=== PATIENT | male | born 1970 | race Caucasian/White ===

== ENCOUNTER 2018-11-08 22:51 | Inpatient (IN) ==
[2018-11-08] MEDS ORDERED: LACTATED RINGERS 1,000 ML IV ONE (23:38)
[2018-11-08] MEDS ORDERED: PROMETHAZINE 25 MG/ML VIAL IV ONE (23:38)
--- NOTE | 2018-11-08 23:48 | Emergency Department Note ---
Nausea/Vomiting/Diarrhea HPI - General Chief complaint: Nausea/Vomiting/Diarrhea Stated complaint: nausea,vomiting,diarrhea Time Seen by Provider: 11/08/18 23:37 Source: patient Mode of arrival: ambulatory Limitations: no limitations - History of Present Illness HPI Narrative: This gentleman states that he had hip surgery done 2 months ago. He's had mu ltiple rounds of antibiotics for an infection on his lips as well as from the hip surgery. He's been having issues with constipation and diarrhea. Went in to [facility] on Sunday and was given mag citrate. He's had diarrhea ever since then. He is also vomiting 3 times a day. Just not feeling well rapid heart rate. Denies abdominal pain MD complaint: nausea, vomiting, diarrhea - Related Data Home Medications Medication Instructions Recorded Confirmed amlodipine 5 mg tablet 5 mg PO QDAY 05/29/17 05/29/17 gabapentin 300 mg capsule See Rx Instructions PO TID 05/29/17 05/29/17 Ciprofloxacin [Cipro] 500 mg PO BID 08/23/18 08/23/18 FLUoxetine HCL [PROzac] 20 mg PO DAILY 08/23/18 08/23/18 Hydrochlorothiazide [Oretic] 12.5 mg PO DAILY 08/23/18 08/23/18 Losartan [Cozaar] 100 mg PO DAILY 08/23/18 08/23/18 Allergies Allergy/AdvReac Type Severity Reaction Status Date / Time sulfamethoxazole Allergy Mild Rash Verified 08/23/18 07:36 [From Sulfamethoprim] trimethoprim Allergy Mild Rash Verified 08/23/18 07:36 [From Sulfamethoprim] Avocado Allergy Unknown Swells up, Verified 08/23/18 07:36 throat closes, hives coconut Allergy Unknown Swells up, Verified 08/23/18 07:36 throat closes, hives Review of Systems All systems ED: reviewed and negative except as stated. Constitutional: Denies: fever, chills ENT ED: Reports: dysphagia, other (history of recently diagnosed mouth cancer). Denies: throat pain Cardiovascular: Denies: chest pain Respiratory: Denies: shortness of breath Gastrointestinal: Reports: nausea, vomiting, diarrhea Genitourinary: Reports: dysuria, frequency, urgency. Denies: hematuria Musculoskeletal: Denies: back pain Past Medical History - Past Medical History Source: nursing notes reviewed Medical history: Reports: DM Surgical history ED: Reports: orthopedic, other Family history: Reports: non-contributory - Social History smoking status: Former smoker Alcohol use: Reports: None Physical Exam Limitations: no limitations General appearance: alert, in no apparent distress Head: atraumatic, normocephalic, normal inspection Eye: Present: normal appearance, PERRL, EOMI. Absent: scleral icterus ENT: normal oropharynx, mucous membranes dry, other (2 small lip lesions, less than 1 mm in size. Second lesion to the right lateral side of the lip appears to be more of a pustule) Neck: Present: normal inspection, full ROM Chest: Present: normal inspection, symmetric chest wall rise Respiratory: Present: normal lung sounds bilaterally. Absent: respiratory distress, rales/crackles Cardiovascular: Present: regular rate, normal rhythm Abdominal: Present: soft, hypoactive bowel sounds. Absent: distention, tenderness, guarding, rebound : Present: normal inspection, normal testicular lie Extremities: Present: normal inspection, full ROM. Absent: pedal edema Back: Present: normal inspection. Absent: CVA tenderness (R), CVA tenderness (L) Neurological: Present: alert, oriented X3, CN II-XII intact Psychiatric: Present: normal affect Skin: Present: warm, dry, normal color Course - Reevaluation(s) Reevaluation #1: Patient started on IV fluids up. He is markedly dehydrated with a serum osmolality of 333. Serum glucose also elevated 1012. He was started on insulin drip. We also gave him IV fluids. Zofran as needed for nausea and he was no longer vomiting in the emergency department. Did hold down a couple of cups of water. Further diarrhea in the department but stool cultures were ordered. Patient did have a history of significant antibiotic use in the last 2 months so there is some concern for C differential diarrhea as well. White count not significant is elevated abdominal exam benign. Final diagnosis is hyperglycemia with dehydration. Discussed with Dr. Romero Vital Signs Temperature 97.0 F 11/08/18 22:52 Pulse Rate 127 H 11/08/18 22:52 Respiratory Rate 18 11/08/18 22:52 Blood Pressure 142/94 11/08/18 22:52 Pulse Oximetry (%) 96 11/08/18 22:52 Temperature 97.0 F 11/08/18 22:52 Pulse Rate 90 07/20/19 02:01 Respiratory Rate 16 11/09/18 02:01 Blood Pressure 151/105 11/09/18 02:01 Pulse Oximetry (%) 97 11/09/18 02:01 Nausea/Vomiting/Diarrhea - Lab Data Lab results reviewed: Yes I reviewed the patient's lab results. Result diagrams: 11/08/18 23:48 11/08/18 23:48 Lab Results 11/08/18 11/08/18 11/08/18 Range/Units 23:48 23:48 23:48 WBC 11.1 H (4.5-11.0) K/mcL RBC 5.24 (4.50-5.90) M/mcL Hgb 16.2 (13.5-16.5) g/dL Hct 47.7 (41.0-55.0) % MCV 90.9 (80.0-100.0) fL MCH 31.0 (26.0-34.0) pg MCHC 34.1 (31.0-36.0) g/dL RDW 12.1 (11.5-14.5) % Plt Count 204 (140-440) K/mcL MPV 10.7 H (7.4-10.4) fL Gran % 72.0 (38.0-78.0) % Lymph % (Auto) 18.2 (15.5-49.0) % [place] % (Auto) 8.5 (1.0-12.0) % Eos % (Auto) 0.9 (0.0-7.0) % Baso % (Auto) 0.4 (0.0-2.0) % Gran # 8.0 (1.8-8.0) K/mcL Lymph # (Auto) 2.0 (1.5-4.8) K/mcL [place] # (Auto) 0.9 (0.1-0.9) K/mcL Eos # (Auto) 0.1 (0.0-0.7) K/mcL Baso # (Auto) 0 (0.0-0.3) K/mcL ABG Methemoglobin (0.4-1.5) % VBG pH (7.32-7.42) U VBG pCO2 (41.0-51.0) mmHg VBG pO2 (25-40) mmHg VBG HCO3 (24.0-28.0) mmol/L VBG Total CO2 (25.0-29.0) mmol/L VBG O2 Saturation (40.0-70.0) % VBG Base Excess (-2.0-2.0) Carboxyhemoglobin (0.0-1.5) % THgb Total Hemoglobin (13.5-16.5) gm/dL O2 Delivery Level Sodium 123 L (133-145) mmol/L Potassium 4.6 (3.3-5.1) mmol/L Chloride 84 L (96-108) mmol/L Carbon Dioxide 21 L (22-30) mmol/L Anion Gap 18.0 H (8-16) BUN 18 (6-20) mg/dl Creatinine 1.1 (0.7-1.2) mg/dl GFR Calculation 78 Glucose 1012 H* (70-105) mg/dL Osmolality 333 H (280-300) mOSM/kg Calcium 9.7 (8.6-10.4) mg/dl Total Bilirubin 1.6 H (0.0-1.0) mg/dL AST 22 (0-37) U/l ALT 62 H (0-40) U/l Alkaline Phosphatase 206 H (39-117) U/L C-Reactive Protein 1.3 H (0.0-0.8) mg/dl Total Protein 7.2 (5.9-8.4) gm/dL Albumin 4.4 (3.2-5.2) gm/dL Globulin 2.8 (2.2-3.7) gm/dL Albumin/Globulin Ratio 1.6 (1.0-2.3) Urine Color Urine Appearance Urine pH (5.0-9.0) Ur Specific [place] (1.000-1.035) Urine Protein (NEG) mg/dL Urine Glucose (UA) (NEG) mg/dL Urine Ketones (NEG) mg/dL Urine Occult Blood (<0.03) mg/dL Urine Nitrate (NEG) Urine Bilirubin (NEG) mg/dL Urine Urobilinogen (NEG) mg/dL Ur Leukocyte Esterase (NEG) /uL Urine RBC (0-1) /hpf Urine WBC (0-4) /hpf Ur Squamous Epith Cells (0-4) /hpf Urine Bacteria (0) /hpf Urine Mucus (0) /hpf Ur Culture Indicated? 11/08/18 11/09/18 Range/Units 23:52 01:19 WBC (4.5-11.0) K/mcL RBC (4.50-5.90) M/mcL Hgb (13.5-16.5) g/dL Hct (41.0-55.0) % MCV (80.0-100.0) fL MCH (26.0-34.0) pg MCHC (31.0-36.0) g/dL RDW (11.5-14.5) % Plt Count (140-440) K/mcL MPV (7.4-10.4) fL Gran % (38.0-78.0) % Lymph % (Auto) (15.5-49.0) % [place] % (Auto) (1.0-12.0) % Eos % (Auto) (0.0-7.0) % Baso % (Auto) (0.0-2.0) % Gran # (1.8-8.0) K/mcL Lymph # (Auto) (1.5-4.8) K/mcL [place] # (Auto) (0.1-0.9) K/mcL Eos # (Auto) (0.0-0.7) K/mcL Baso # (Auto) (0.0-0.3) K/mcL ABG Methemoglobin 0 L (0.4-1.5) % VBG pH 7.44 H (7.32-7.42) U VBG pCO2 34.5 L (41.0-51.0) mmHg VBG pO2 85 H (25-40) mmHg VBG HCO3 22.7 L (24.0-28.0) mmol/L VBG Total CO2 23.8 L (25.0-29.0) mmol/L VBG O2 Saturation 92.7 H (40.0-70.0) % VBG Base Excess -0.8 (-2.0-2.0) Carboxyhemoglobin 2.9 H (0.0-1.5) % THgb Total Hemoglobin 15.0 (13.5-16.5) gm/dL O2 Delivery Level Not Reportable Sodium (133-145) mmol/L Potassium (3.3-5.1) mmol/L Chloride (96-108) mmol/L Carbon Dioxide (22-30) mmol/L Anion Gap (8-16) BUN (6-20) mg/dl Creatinine (0.7-1.2) mg/dl GFR Calculation Glucose (70-105) mg/dL Osmolality (280-300) mOSM/kg Calcium (8.6-10.4) mg/dl Total Bilirubin (0.0-1.0) mg/dL AST (0-37) U/l ALT (0-40) U/l Alkaline Phosphatase (39-117) U/L C-Reactive Protein (0.0-0.8) mg/dl Total Protein (5.9-8.4) gm/dL Albumin (3.2-5.2) gm/dL Globulin (2.2-3.7) gm/dL Albumin/Globulin Ratio (1.0-2.3) Urine Color Colorless Urine Appearance Clear Urine pH 5.0 (5.0-9.0) Ur Specific [place] 1.028 (1.000-1.035) Urine Protein Neg (NEG) mg/dL Urine Glucose (UA) >=500 A (NEG) mg/dL Urine Ketones 5/tr A (NEG) mg/dL Urine Occult Blood Neg (<0.03) mg/dL Urine Nitrate Neg (NEG) Urine Bilirubin Neg (NEG) mg/dL Urine Urobilinogen Neg (NEG) mg/dL Ur Leukocyte Esterase Neg (NEG) /uL Urine RBC < 1 (0-1) /hpf Urine WBC 0 (0-4) /hpf Ur Squamous Epith Cells 0 (0-4) /hpf Urine Bacteria 0 (0) /hpf Urine Mucus Few (0) /hpf Ur Culture Indicated? No Disposition Pt seen by [facility]/PA only: No Clinical Impression: Hyperglycemia due to type 2 diabetes mellitus Disposition: Xfer As Inpt ([facility]) Referrals: Cristian,Armen, [employer] [Primary Care Provider] -
[2018-11-08] MEDS ORDERED: 0.9 % SODIUM CHLORIDE 1,000 ML BAG IV STA (23:51)
[2018-11-09 00:29] LABS: Basophils # (Auto) 0 K/mcL (0.0-0.3); Basophils % (Auto) 0.4 % (0.0-2.0); Eosinophils # (Auto) 0.1 K/mcL (0.0-0.7); Eosinophils % (Auto) 0.9 % (0.0-7.0); Hematocrit 47.7 % (41.0-55.0); Hemoglobin 16.2 g/dL (13.5-16.5); Lymphocytes % (Auto) 18.2 % (15.5-49.0); Mean Cell Volume 90.9 fL (80.0-100.0); Mean Corpuscular HGB Conc 34.1 g/dL (31.0-36.0); Mean Platelet Volume 10.7 fL (7.4-10.4); Monocytes # (Auto) 0.9 K/mcL (0.1-0.9); Monocytes % (Auto) 8.5 % (1.0-12.0); Platelet Count 204 K/mcL (140-440); RBC 5.24 M/mcL (4.50-5.90); Red Cell Distribution Width 12.1 % (11.5-14.5); WBC 11.1 K/mcL (4.5-11.0)
[2018-11-09 00:31] LABS: Appearance,Urine CLEAR; Bacteria,Urine 0 /hpf (0); Bilirubin,Urine NEG (NEG); Color,Urine COLORLESS; Culture Indicated,Urine NO; Glucose,Urine (UA) >=500 mg/dL (NEG); Ketones,Urine 5/TR mg/dL (NEG); Leukocyte Esterase,Urine NEG /uL (NEG); Mucus,Urine FEW /hpf (0); Nitrate,Urine NEG (NEG); Protein,Urine NEG (NEG); Specific Gravity,Urine 1.028 (1.000-1.035); Urine Blood NEG mg/dL (<0.03); Urine RBC < 1 /hpf (0-1); Urine Squamous Epithelial Cell 0 /hpf (0-4); Urine WBC 0 /hpf (0-4); Urobilinogen,Urine NEG (NEG)
[2018-11-09] MEDS ORDERED: ONDANSETRON 4 MG/2 ML VIAL IV ONE (00:46)
[2018-11-09] MEDS ORDERED: 0.9 % SODIUM CHLORIDE 1,000 ML IV ONE ×2 (00:57→02:14)
[2018-11-09 00:59] LABS: ALT/SGPT 62 U/l (0-40); AST/SGOT 22 U/l (0-37); Albumin 4.4 gm/dL (3.2-5.2); Albumin/Globulin Ratio 1.6 (1.0-2.3); Alkaline Phosphatase 206 U/L (39-117); Bilirubin,Total 1.6 mg/dL (0.0-1.0); Blood Urea Nitrogen 18 mg/dl (6-20); C-Reactive Protein 1.3 mg/dl (0.0-0.8); Calcium 9.7 mg/dl (8.6-10.4); Carbon Dioxide 21 mmol/L (22-30); Chloride 84 mmol/L (96-108); Globulin 2.8 gm/dL (2.2-3.7); Glomerular Filtration Rate 78; Glucose 1012 mg/dL (70-105)
[2018-11-09] MEDS ORDERED: INSULIN GLARGINE, HUMAN 1 UNIT/0.01 ML SQ ONE ×3 (01:05→22:07)
[2018-11-09] MEDS ORDERED: INSULIN REGULAR, HUMAN 50 UNIT in 0.9 % SODIUM CHLORIDE 99.5 ML IV ONE ×2 (01:09→01:25)
[2018-11-09] MEDS ORDERED: INSULIN REGULAR, HUMAN 50 UNIT in 0.9 % SODIUM CHLORIDE 99.5 ML IV SCH ×2 (01:15→03:09)
[2018-11-09 01:37] LABS: ABG Methemoglobin 0 % (0.4-1.5); VBG Base Excess -0.8 (-2.0-2.0); VBG HCO3 22.7 mmol/L (24.0-28.0); VBG Oxygen Saturation 92.7 % (40.0-70.0); VBG PCO2 34.5 mmHg (41.0-51.0); VBG PH 7.44 U (7.32-7.42); VBG PO2 85 mmHg (25-40); VBG Total CO2 23.8 mmol/L (25.0-29.0)
[2018-11-09] MEDS ORDERED: ACETAMINOPHEN 325 MG TABLET PO ONE ×3 (01:43→22:20)
[2018-11-09] MEDS ORDERED: ACETAMINOPHEN 325 MG TABLET PO PRN (03:09)
[2018-11-09] MEDS ORDERED: ONDANSETRON 4 MG/2 ML VIAL IV PRN ×2 (03:09→21:39)
[2018-11-09] MEDS ORDERED: NALOXONE HCL 0.4 MG/ML VIAL IV PRN ×2 (03:09→21:39)
[2018-11-09] MEDS: LACTATED RINGERS 1,000 ML IV SCH ×3 (03:19→22:00)
[2018-11-09] MEDS ORDERED: ONDANSETRON 4 MG/2 ML VIAL ONE (03:21)
[2018-11-09] MEDS ORDERED: KETOROLAC 15 MG/ML VIAL IV ONE (04:06)
[2018-11-09] MEDS ORDERED: KETOROLAC 15 MG/ML VIAL ONE (04:17)
[2018-11-09] MEDS ORDERED: HYDROmorphone 2 MG/ML VIAL IV ONE (04:40)
[2018-11-09] MEDS ORDERED: HYDROmorphone 2 MG/ML VIAL ONE (04:43)
[2018-11-09] MEDS: 0.9 % SODIUM CHLORIDE 10 ML SYRINGE IV SCH ×4 (05:38→22:00)
[2018-11-09 05:53] LABS: Beta Hydroxybutyrate 1.31 mmol/L (< 0.27)
[2018-11-09] MEDS ORDERED: FLUoxetine HCL 20 MG CAPSULE PO SCH (09:00)
[2018-11-09] MEDS ORDERED: FAMOTIDINE/PF 20 MG/2 ML VIAL IV SCH (09:00)
[2018-11-09] MEDS: HEPARIN 5,000 UNIT/ML VIAL SQ SCH ×2 (10:02→20:57)
--- NOTE | 2018-11-09 10:37 | Internal Med History&Physical ---
Medical - H&P: HPI Patient information: Note initiated : 11/09/18 at 10:32 am Service Date, if different from initiated Date: [] Patient: Aaron Calle 48 y/o M admitted on 11/09/18 for nausea,vomiting,diarrhea. Chief Complaint: [] History of present illness: Mr. Calle is a 48 year old M history of obesity, presents to the emergency room today for evaluation of nausea vomiting diarrhea. The patient had hip surgery done recently, post surgery there was a concern for bursitis and the patient was on antibiotics and some medications from orthopedics. The patient developed nausea and vomiting approximately 3 days ago, his symptoms have progressively gotten worse since then. He has been drinking a lot of water but still felt thirsty, was dizzy. He was not able to keep much food down. He was seen in urgent care center at [facility], x-ray abdomen was done which is interpreted as negative but there was concern for some constipation and the patient was given magnesium citrate. After demonstration of magnesium citrate patient developed diarrhea, the patient continued to have diarrhea nausea and vomiting now. Last episode of diarrhea was yesterday morning. He continued to have nausea and vomiting late last night at which time they decided to bring him to the emergency room. He denies any cough shortness of breath or chest pain, he admits to having visual black spots and headaches does have a history of migraines, he has nausea vomiting and diarrhea, he has abdominal pain associated with same, he has some pain at the left hip at the site of surgery but does not feel that it is any worse than before. He admits to having subjective sensation of chills but no documented fever. The patient denies any other acute complaint or concern. On presenting to the emergency room patient was hemodynamically stable saturating well on room air. His labs showed he had a glucose level of more than 1000, no obvious evidence of infection according to the ED provider however basic work-up was not completed, UA is negative for infection. Patient is pending a chest x-ray CT abdomen and pelvis which should cover the hip region also. Patient was admitted to the ICU for management of DKA and hyperosmolar state. Patient has an A1c of 6.5 according to his which was diagnosed a few months ago his primary care provider was going to work this up and start the patient on medications. All systems: reviewed and no additional remarkable complaints except as stated (as per HPI rest negative) Medical - H&P: PMH Medical history: Medical History (Last Updated 05/29/17 @ 16:03 by Ana Levy) History of tobacco use (Chronic) Work related injury (Chronic ~02/2017) Left testicular pain (Chronic ~02/2017) Left groin pain (Chronic ~02/2017) Carpal tunnel syndrome, bilateral (Chronic ~2012) Migraines (Chronic ~1987) Hyperlipidemia (Chronic) Hypertension, essential (Chronic ~2007) Gout (Chronic ~2009) Surgical history: Past Surgical History (Last Updated 05/29/17 @ 15:59 by Ana Levy) H/O colonoscopy (Chronic) H/O shoulder surgery (Chronic) History of herniorrhaphy (Chronic) Hx of appendectomy (Chronic) Pertinent family history: Family History (Last Updated 05/29/17 @ 16:01 by Ana Levy) Mother Lung cancer Seizures Father Heart attack Family/Other Migraines Medical - H&P: Meds Home Medications Medication Instructions Recorded Confirmed Type amlodipine 5 mg tablet 5 mg PO QDAY 05/29/17 11/09/18 History FLUoxetine HCL [PROzac] 20 mg PO DAILY 08/23/18 11/09/18 History Hydrochlorothiazide [Oretic] 12.5 mg PO DAILY 08/23/18 11/09/18 History Losartan [Cozaar] 100 mg PO DAILY 08/23/18 11/09/18 History Allergies Allergy/AdvReac Type Severity Reaction Status Date / Time Avocado Allergy Severe Swells up, Verified 11/09/18 08:13 throat closes, hives coconut Allergy Severe Swells up, Verified 11/09/18 08:13 throat closes, hives sulfamethoxazole Allergy Mild Rash Verified 08/23/18 07:36 [From Sulfamethoprim] trimethoprim Allergy Mild Rash Verified 08/23/18 07:36 [From Sulfamethoprim] Medical - H&P: Exam - Constitutional Vitals: Temp Pulse Resp BP Pulse Ox 98.3 F 86 14 121/87 96 11/09/18 08:01 11/09/18 09:05 11/09/18 09:05 11/09/18 09:01 11/09/18 09:05 Exam: GENERAL: The patient is a well-developed, well-nourished in no apparent distress. Is alert and oriented x3. Obese individual VITAL SIGNS: Reviewed and as noted elsewhere. HEENT: Head is normocephalic and atraumatic. Extraocular muscles are intact. Pupils are equal, round, and reactive to light. Nares appeared normal. Mouth appears any without lesions. Mucous membranes are moist. NECK: Normal to inspection, Supple, No lymphadenopathy or thyromegaly. LUNGS: Air entry equal on both sides, no wheezing, crackles or rhonchi noted. No accessory muscles of respiration HEART: Regular rate and rhythm normal, S1 and S2 heard, no Gallop, S3 or Rub Noted, No Gross murmur heard. ABDOMEN: Soft, nontender, and nondistended. Positive bowel sounds. No hepatosplenomegaly was noted. EXTREMITIES: No cyanosis, clubbing, rash, lesions or edema. Left hip site has well-healing wounds from surgery, no obvious fluctuation or erythema noted NEUROLOGIC: Cranial nerves II through XII are grossly intact. Motor and Sensory System Grossly Intact PSYCHIATRIC: Normal affect, Normal Mood. Appropriate Behavior. SKIN: No ulceration or wounds noted, No jaundice, No rash noted. Medical - H&P: Reslt - Labs CBC & Chem 7: 11/08/18 23:48 11/08/18 23:48 Labs: Short CBC 11/08/18 Range/Units 23:48 WBC 11.1 H (4.5-11.0) K/mcL Hgb 16.2 (13.5-16.5) g/dL Hct 47.7 (41.0-55.0) % Plt Count 204 (140-440) K/mcL BMP 11/08/18 23:48 Sodium 123 L Potassium 4.6 Chloride 84 L Carbon Dioxide 21 L BUN 18 Creatinine 1.1 Glucose 1012 H* Calcium 9.7 Liver Function 11/08/18 Range/Units 23:48 Total Bilirubin 1.6 H (0.0-1.0) mg/dL AST 22 (0-37) U/l ALT 62 H (0-40) U/l Alkaline Phosphatase 206 H (39-117) U/L Albumin 4.4 (3.2-5.2) gm/dL Urine 11/08/18 Range/Units 23:52 Urine Color Colorless Urine Appearance Clear Urine pH 5.0 (5.0-9.0) Ur Specific [place] 1.028 (1.000-1.035) Urine Protein Neg (NEG) mg/dL Urine Glucose (UA) >=500 A (NEG) mg/dL - ABG Interpretation ABG results: 11/09/18 01:19 ABG Methemoglobin 0 L VBG pH 7.44 H VBG pCO2 34.5 L VBG pO2 85 H VBG HCO3 22.7 L VBG Total CO2 23.8 L VBG O2 Saturation 92.7 H VBG Base Excess -0.8 Medical - H&P: A/P - Narrative A/P Narrative: A/P DKA/Hyperosmolar state -Likely etiology of patients symptoms, of nausea/vomiting, and weakness -IV fluids, Insulin GGT, look for e/o infection -likely precipitated by recent surgery, -not sure if steroids were used for bursitis -Beta hydroxybtyrate is midly elevated -get Chest X ray, abdomen and pelvis CT Pseudohyponatremia -no need for slow correction. Headache -severe, with floaters -get Head CT -symptomatic management Nausea/Vomiting/Diarrhea -Nausea and vomiting likely from DKA hyperosmolar state -Diarrhea secondary to use of mag citrate has resolved now will watch Morbid Obesity, BMI 38 -outpatient management HTN -Resume home bp meds DVT hep sq Full code NPO for now. Medical - H&P: Qual - Stroke Symptom Onset Unknown: No - VTE Deep Vein Thrombosis/Pulmonary Embolism Present on Admission: No Social History - Social History marital status: single - Tobacco smoking status: Former smoker - Alcohol alcohol intake frequency: a few times a month - Substance use substance use type: does not use
[2018-11-09] MEDS ORDERED: HYDROCHLOROTHIAZIDE 12.5 MG CAPSULE PO SCH (10:44)
[2018-11-09] MEDS ORDERED: amLODIPine 5 MG TABLET PO SCH (10:44)
[2018-11-09] MEDS ORDERED: amLODIPine 5 MG TABLET PO ONE (11:00)
--- NOTE | 2018-11-09 11:00 | Cat Scan Report ---
CLINICAL INFORMATION: Obtundation COMPARISON: None. TECHNIQUE: 2.5 mm helical slices were obtained in the skull base to vertex. Following reconstruction, axial reformatted images were reviewed at bone and parenchymal windows. The exam was performed using radiation dose optimization techniques including, but not limited to, automated exposure control, adjustment of the mA and/or kV according to patient size and use of iterative reconstruction technique. FINDINGS: The ventricles, sulci, fissures, and cisterns are normal in size and configuration. No extra-axial fluid collections are identified. The cerebrum, brainstem and cerebellum are unremarkable. There is no evidence of hemorrhage, mass effect, or edema. Bone windows show no osseous abnormality. IMPRESSION: Normal head CT without contrast. Interpreted and Authenticated by: Nixon Jackson 11/09/18
--- NOTE | 2018-11-09 11:08 | XRay Report ---
CLINICAL INFORMATION: dka COMPARISON: None. FINDINGS: The heart size, mediastinum and pulmonary vessels are unremarkable. The lungs are clear. There are no effusions. Malunified old mid right clavicular fracture noted. Bones and soft tissues otherwise normal. IMPRESSION: Normal chest. Interpreted and Authenticated by: Nixon Jackson 11/09/18
[2018-11-09] MEDS: HYDROmorphone 2 MG/ML VIAL IV PRN ×3 (11:20→19:11)
[2018-11-09] MEDS: ESOMEPRAZOLE 40 MG VIAL IV SCH ×2 (11:25→18:05)
[2018-11-09 12:37] LABS: Estimated Average Glucose(eAG) 295 mg/dL; Hemoglobin A1C 11.9 % HGB (4.0-6.0)
[2018-11-09] MEDS ORDERED: IOPAMIDOL 100 ML BOTTLE IV ONE (12:46)
[2018-11-09 12:55] LABS: Thyroid Stimulating Hormone 1.32 uIU/ml (0.27-5.01)
[2018-11-09 14:10] LABS: POC Blood Urea Nitrogen 12 mg/dl (6-20); POC CO2 27 mmol/L (22-30); POC Calcium, Ionized 1.21 mmol/L (1.16-1.32); POC Chloride 99 mmol/L (96-108); POC Creatinine 0.9 mg/dl (0.7-1.2); POC Glucose, Random 141 mg/dL (70-105); POC Potassium 3.4 mmol/L (3.3-5.1); POC Sodium 138 mmol/L (133-145)
[2018-11-09] MEDS ORDERED: DEXTROSE 50% 50 ML VIAL IV PRN ×2 (14:23→21:39)
[2018-11-09] MEDS ORDERED: LACTATED RINGERS 1,000 ML IV SCH (14:23)
[2018-11-09] MEDS ORDERED: DEXTROSE 31 GM ORAL.SUSP PO PRN ×2 (14:23→21:39)
[2018-11-09] MEDS: INSULIN LISPRO 1 UNIT/0.01 ML UNIT SQ SCH ×2 (16:56→20:57)
[2018-11-09] MEDS ORDERED: INSULIN GLARGINE, HUMAN 1 UNIT/0.01 ML SQ SCH (21:36)
[2018-11-09] MEDS ORDERED: INSULIN LISPRO 1 UNIT/0.01 ML UNIT SQ SCH (21:37)
[2018-11-09] MEDS ORDERED: HYDROmorphone 2 MG/ML VIAL IV PRN (21:39)
[2018-11-09] MEDS: INSULIN GLARGINE, HUMAN 1 UNIT/0.01 ML SQ SCH (22:08)
[2018-11-10] MEDS: LACTATED RINGERS 1,000 ML IV SCH ×3 (02:35→15:48)
[2018-11-10] MEDS ORDERED: ACETAMINOPHEN 325 MG TABLET PO ONE (03:47)
[2018-11-10] MEDS: ACETAMINOPHEN 325 MG TABLET PO PRN ×3 (03:47→17:15)
[2018-11-10 05:22] LABS: Basophils # (Auto) 0 K/mcL (0.0-0.3); Basophils % (Auto) 0.2 % (0.0-2.0); Eosinophils # (Auto) 0.3 K/mcL (0.0-0.7); Eosinophils % (Auto) 3.7 % (0.0-7.0); Granulocytes % (Auto) 58.9 % (38.0-78.0); Hemoglobin 14.4 g/dL (13.5-16.5); Lymphocytes # (Auto) 2.8 K/mcL (1.5-4.8); Lymphocytes % (Auto) 30.5 % (15.5-49.0); Mean Cell Volume 90.5 fL (80.0-100.0); Mean Corpuscular HGB Conc 34.2 g/dL (31.0-36.0); Mean Platelet Volume 10.1 fL (7.4-10.4); Monocytes # (Auto) 0.6 K/mcL (0.1-0.9); Monocytes % (Auto) 6.7 % (1.0-12.0); Platelet Count 176 K/mcL (140-440); RBC 4.64 M/mcL (4.50-5.90); WBC 9.3 K/mcL (4.5-11.0)
[2018-11-10] MEDS: 0.9 % SODIUM CHLORIDE 10 ML SYRINGE IV SCH ×5 (05:47→22:20)
[2018-11-10 05:48] LABS: ALT/SGPT 64 U/l (0-40); AST/SGOT 31 U/l (0-37); Albumin 3.6 gm/dL (3.2-5.2); Albumin/Globulin Ratio 1.5 (1.0-2.3); Alkaline Phosphatase 105 U/L (39-117); Bilirubin,Direct < 0.2 mg/dL (0.0-0.3); Blood Urea Nitrogen 13 mg/dl (6-20); Calcium 8.6 mg/dl (8.6-10.4); Carbon Dioxide 23 mmol/L (22-30); Chloride 98 mmol/L (96-108); Globulin 2.4 gm/dL (2.2-3.7); Glomerular Filtration Rate 99; Glucose 322 mg/dL (70-105); Lactate Dehydrogenase 159 U/L (94-250); Phosphorous 3.3 mg/dL (2.7-4.5); Triglycerides 416 mg/dl (<150); Uric Acid 5.3 mg/dL (2.5-8.0)
[2018-11-10] MEDS: ESOMEPRAZOLE 40 MG VIAL IV SCH ×2 (07:44→17:01)
[2018-11-10] MEDS: HEPARIN 5,000 UNIT/ML VIAL SQ SCH ×2 (08:07→20:44)
[2018-11-10] MEDS: INSULIN GLARGINE, HUMAN 1 UNIT/0.01 ML SQ SCH ×3 (08:07→20:45)
[2018-11-10] MEDS: INSULIN LISPRO 1 UNIT/0.01 ML UNIT SQ SCH ×4 (08:07→20:45)
[2018-11-10] MEDS: FLUoxetine HCL 20 MG CAPSULE PO SCH (08:08)
[2018-11-10] MEDS: HYDROCHLOROTHIAZIDE 12.5 MG CAPSULE PO SCH (08:08)
[2018-11-10] MEDS: LOSARTAN 50 MG TABLET PO SCH (08:08)
[2018-11-10] MEDS ORDERED: amLODIPine 5 MG TABLET PO SCH (09:00)
[2018-11-10] MEDS ORDERED: INSULIN GLARGINE, HUMAN 1 UNIT/0.01 ML SQ SCH (09:00)
[2018-11-10] MEDS ORDERED: LOSARTAN 50 MG TABLET PO SCH (09:00)
[2018-11-10] MEDS: INDOMETHACIN 25 MG CAPSULE PO SCH ×3 (10:20→20:45)
[2018-11-10] MEDS ORDERED: SUMAtriptan SUCCINATE 6 MG/0.5 ML VIAL SQ ONE (11:13)
[2018-11-10] MEDS: glipiZIDE 5 MG TABLET PO SCH ×2 (11:32→16:57)
--- NOTE | 2018-11-10 11:44 | Internal Med Progress Note ---
Medical - PN: Subj Patient information: Note initiated : 11/10/18 at 11:41 am Service Date, if different from initiated Date: [] Patient: Aaron Calle a 48 y/o M admitted on 11/09/18 for nausea,vomiting,diarrhea. Chief Complaint: [] Interval history: Mr. Calle is a 48 year old M history of obesity, presents to the emergency room today for evaluation of nausea vomiting diarrhea. The patient had hip surgery done recently, post surgery there was a concern for bursitis and the patient was on antibiotics and some medications from orthopedics. The patient developed nausea and vomiting approximately 3 days ag o, his symptoms have progressively gotten worse since then. He has been drinking a lot of water but still felt thirsty, was dizzy. He was not able to keep much food down. He was seen in urgent care center at [facility], x-ray abdomen was done which is interpreted as negative but there was concern for some constipation and the patient was given magnesium citrate. After demonstration of magnesium citrate patient developed diarrhea, the patient continued to have diarrhea nausea and vomiting now. Last episode of diarrhea was yesterday morning. He continued to have nausea and vomiting late last night at which time they decided to bring him to the emergency room. He denies any cough shortness of breath or chest pain, he admits to having visual black spots and headaches does have a history of migraines, he has nausea vomiting and diarrhea, he has abdominal pain associated with same, he has some pain at the left hip at the site of surgery but does not feel that it is any worse than before. He admits to having subjective sensation of chills but no documented fever. The patient denies any other acute complaint or concern. On presenting to the emergency room patient was hemodynamically stable saturating well on room air. His labs showed he had a glucose level of more th an 1000, no obvious evidence of infection according to the ED provider however basic work-up was not completed, UA is negative for infection. Patient is pending a chest x-ray CT abdomen and pelvis which should cover the hip region also. Patient was admitted to the ICU for management of DKA and hyperosmolar state. Patient has an A1c of 6.5 according to his which was diagnosed a few months ago his primary care provider was going to work this up and start the patient on medications. 11/10 Patient seen and examined, his glucose level is high but DKA has resolved, anion gap is normal of was off the drip yesterday. Sugars still running between 200 300 The patient had been given a course of oral steroids as well as steroid injection in the hip couple weeks ago. I believe this was likely the precipitant that resulted in very high glucose levels. Presently the patient has 2 main concerns. He has pain in his right toe, he does have a history of gout pain is moderate to severe worse with movement. The patient also has a headache he has scotoma on his left eye vision which has not improved since yesterday. He does have a history of migraines. But has not had a migraine headache for a while. The patient's CT head is negative he has had a CT abdomen and pelvis which was done results of which are still pending there are some lesions on the liver about which I am concerned but I would like an official radiology report before remove further to investigate this. Start the patient on glipizide as well as metformin continue insulin and sliding scale to control the glucose values. The right toe pain likely related to gout, will start the patient on Indocid this should also help with the headache and monitor. Pertinent ROS: Headache present Denies chest pain, palpitations Denies cough or shortness of breath Denies abdominal pain, nausea or vomiting. Right toe pain preset - Constitutional Vitals: Vital Signs Temp Pulse Resp BP Pulse Ox 98.9 F 95 H 20 132/93 98 11/10/18 08:37 11/10/18 07:34 11/10/18 08:37 11/10/18 08:37 11/10/18 08:37 Period Temp Pulse Resp BP Sys/Pierce Pulse Ox Last 24 Hr 96.9 F-98.9 F 79-101 18-20 122-148/82-101 93-98 Intake and Output 11/09/18 11/10/18 11/10/18 21:59 05:59 13:59 Intake Total 990 1999 Output Total 850 1150 Balance 140 850 Weight 277 lb 4.8 oz Intake & Output: Intake & Output 11/09/18 11/10/18 11/10/18 21:59 05:59 13:59 Intake Total 990 2000 Output Total 850 1150 Balance 140 850 Weight 277 lb 4.8 oz Intake: IV 2000 Oral 990 Output: Void Amount 850 1150 Other: Percent of Meal Consumed 100% # Emeses 12 Exam: Constitutional; Afebrile, cooperative, alert, not in distress. Respiratory system: Air Entry equal on both sides, No crackles or wheezing, no rhonchi. CVS- Rate rhythm regular, S1,S2 heard, no gallop, no rub. 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 Pupils reactive to ligh shilo 3mm, no nystagmus, Right toe 1st MT joint erythema tendeness noted. Medical - PN: Obj Da - Labs CBC & Chem 7: 11/10/18 03:32 11/10/18 03:32 Labs: Abnormal Lab Results 11/10/18 11/09/18 11/09/18 03:32 14:02 11:43 WBC POC Hct 40.0 L MPV ABG Methemoglobin VBG pH VBG pCO2 VBG pO2 VBG HCO3 VBG Total CO2 VBG O2 Saturation Carboxyhemoglobin Sodium Chloride Carbon Dioxide Anion Gap Glucose 322 H POC Glucose 141 H Hemoglobin A1c 11.9 H Osmolality Total Bilirubin ALT 64 H Alkaline Phosphatase C-Reactive Protein Triglycerides 416 H Beta-Hydroxybutyrate Urine Glucose (UA) Urine Ketones 11/09/18 11/09/18 11/08/18 04:09 01:19 23:52 WBC POC Hct MPV ABG Methemoglobin 0 L VBG pH 7.44 H VBG pCO2 34.5 L VBG pO2 85 H VBG HCO3 22.7 L VBG Total CO2 23.8 L VBG O2 Saturation 92.7 H Carboxyhemoglobin 2.9 H Sodium Chloride Carbon Dioxide Anion Gap Glucose POC Glucose Hemoglobin A1c Osmolality Total Bilirubin ALT Alkaline Phosphatase C-Reactive Protein Triglycerides Beta-Hydroxybutyrate 1.31 H Urine Glucose (UA) >=500 A Urine Ketones 5/tr A 11/08/18 11/08/18 11/08/18 23:48 23:48 23:48 WBC POC Hct MPV ABG Methemoglobin VBG pH VBG pCO2 VBG pO2 VBG HCO3 VBG Total CO2 VBG O2 Saturation Carboxyhemoglobin Sodium 123 L Chloride 84 L Carbon Dioxide 21 L Anion Gap 18.0 H Glucose 1012 H* POC Glucose Hemoglobin A1c Osmolality 333 H Total Bilirubin 1.6 H ALT 62 H Alkaline Phosphatase 206 H C-Reactive Protein 1.3 H Triglycerides Beta-Hydroxybutyrate 2.15 H Urine Glucose (UA) Urine Ketones 11/08/18 23:48 WBC 11.1 H POC Hct MPV 10.7 H ABG Methemoglobin VBG pH VBG pCO2 VBG pO2 VBG HCO3 VBG Total CO2 VBG O2 Saturation Carboxyhemoglobin Sodium Chloride Carbon Dioxide Anion Gap Glucose POC Glucose Hemoglobin A1c Osmolality Total Bilirubin ALT Alkaline Phosphatase C-Reactive Protein Triglycerides Beta-Hydroxybutyrate Urine Glucose (UA) Urine Ketones Meds: Medications Acetaminophen (Tylenol) 650 mg PO Q4-6HP PRN PRN Reason: PAIN/FEVER > 101 Last Admin: 11/10/18 08:08 Dose: 650 mg Documented by: Amlodipine Besylate (Norvasc) 5 mg PO QDAY [facility] Last Admin: 11/10/18 08:08 Dose: 5 mg Documented by: Dextrose (Dextrose 50%) 0 ml IV UD PRN PRN Reason: Hypoglycemia Diagnostic Test (Pha) (Accu-Chek) 1 each FS ACHS [facility] Last Admin: 11/10/18 11:07 Dose: 1 each Documented by: Esomeprazole Magnesium (Nexium) 40 mg IV BIDAC [facility] Last Admin: 11/10/18 07:44 Dose: 40 mg Documented by: Fluoxetine HCl (Prozac) 20 mg PO DAILY [facility] Last Admin: 11/10/18 08:08 Dose: 20 mg Documented by: Glipizide (Glucotrol) 5 mg PO BIDAC [facility] Last Admin: 11/10/18 11:32 Dose: 5 mg Documented by: Glucose (Insta-Glucose) 15 gm PO PRN PRN PRN Reason: Hypoglycemia Heparin Sodium (Porcine) (Heparin) 5,000 unit SQ Q12 [facility] Last Admin: 11/10/18 08:07 Dose: 5,000 unit Documented by: Hydrochlorothiazide (Oretic) 12.5 mg PO DAILY [facility] Last Admin: 11/10/18 08:08 Dose: 12.5 mg Documented by: Hydromorphone HCl (Dilaudid) 1 - 2 mg IV Q2HP PRN PRN Reason: pain not controlled by apap Lactated Ringer's (Lactated Ringers) 1,000 mls @ 75 mls/hr IV .[id number] [facility] Last Admin: 11/10/18 10:08 Dose: Not Given Documented by: Indomethacin (Indocin) 50 mg PO TID [facility] Last Admin: 11/10/18 10:20 Dose: 50 mg Documented by: Insulin Glargine (Lantus) 15 unit SQ BID [facility] Last Admin: 11/10/18 10:01 Dose: Not Given Documented by: Insulin Human Lispro (Humalog) 0 unit SQ ACHS [facility]; Protocol Last Admin: 11/10/18 11:32 Dose: 12 units Documented by: Losartan Potassium (Cozaar) 100 mg PO DAILY [facility] Last Admin: 11/10/18 08:08 Dose: 100 mg Documented by: Metformin [facility] (Glucophage) [facility] Naloxone HCl (Narcan) 0.1 mg IV Q2MIN PRN PRN Reason: Opiate Reversal Ondansetron HCl (Zofran) 4 mg IV Q4-6HP PRN PRN Reason: Nausea And Vomiting Sodium Chloride (Saline Flush) 10 ml IV Q8 [facility] Last Admin: 11/10/18 07:44 Dose: 10 ml Documented by: - ABG Interpretation ABG results: 11/09/18 01:19 ABG Methemoglobin 0 L VBG pH 7.44 H VBG pCO2 34.5 L VBG pO2 85 H VBG HCO3 22.7 L VBG Total CO2 23.8 L VBG O2 Saturation 92.7 H VBG Base Excess -0.8 Medical - PN: A/P - Time Spent With Patient Total time spent is greater than 50% in coordination of care (as documented) at patient's floor/unit and/or counseling patient: - Narrative A/P Narrative: A/P DKA/Hyperosmolar state -likely prescipated by steroid use -Glucose level still elevated, on insuiln, ssi , start on glipizide and metfomrin (metformin will strat tomorrow) -no /o acute infection yet, CT abdomen however is pending Pseudohyponatremia -no need for slow correction. -resolved Headache -severe, with floaters/scotomoa -does have h/o migrane -Head CT is neg -will give sumatriptan to see if this helps -dilaudid and indocid should help too -consider MR head, if CT Abdomen liver lesions reported as concern for mets/malignancy Nausea/Vomiting/Diarrhea -resolved Acute gout -right toes -started on idocid. -avoid steroids now given significant hyperglycemic reaction Morbid Obesity, BMI 38 -outpatient management HTN -Resume home bp meds DVT hep sq Full code Carb consistent diet Medical - PN: Qual - Stroke Symptom Onset Unknown: No - VTE Deep Vein Thrombosis/Pulmonary Embolism Present on Admission: No
[2018-11-10] MEDS: metFORMIN 850 MG TABLET PO SCH (16:58)
[2018-11-10] MEDS ORDERED: glipiZIDE 5 MG TABLET PO SCH (17:00)
[2018-11-10] MEDS: HYDROmorphone 2 MG/ML VIAL IV PRN ×2 (17:14→19:17)
[2018-11-11] MEDS: HYDROmorphone 2 MG/ML VIAL IV PRN ×5 (01:39→13:09)
[2018-11-11] MEDS: ACETAMINOPHEN 325 MG TABLET PO PRN ×2 (03:40→10:36)
[2018-11-11] MEDS: LACTATED RINGERS 1,000 ML IV SCH (04:50)
[2018-11-11] MEDS: 0.9 % SODIUM CHLORIDE 10 ML SYRINGE IV SCH (05:22)
[2018-11-11 06:12] LABS: Basophils # (Auto) 0 K/mcL (0.0-0.3); Basophils % (Auto) 0.5 % (0.0-2.0); Eosinophils # (Auto) 0.2 K/mcL (0.0-0.7); Eosinophils % (Auto) 3.6 % (0.0-7.0); Granulocytes % (Auto) 47.5 % (38.0-78.0); Hematocrit 39.1 % (41.0-55.0); Hemoglobin 13.6 g/dL (13.5-16.5); Lymphocytes # (Auto) 2.6 K/mcL (1.5-4.8); Lymphocytes % (Auto) 39.9 % (15.5-49.0); Mean Cell Volume 87.7 fL (80.0-100.0); Mean Corpuscular HGB Conc 34.9 g/dL (31.0-36.0); Mean Platelet Volume 9.8 fL (7.4-10.4); Monocytes # (Auto) 0.6 K/mcL (0.1-0.9); Monocytes % (Auto) 8.5 % (1.0-12.0); Platelet Count 160 K/mcL (140-440); RBC 4.45 M/mcL (4.50-5.90); Red Cell Distribution Width 11.5 % (11.5-14.5); WBC 6.5 K/mcL (4.5-11.0)
[2018-11-11 06:28] LABS: ALT/SGPT 53 U/l (0-40); AST/SGOT 26 U/l (0-37); Albumin 3.4 gm/dL (3.2-5.2); Albumin/Globulin Ratio 1.5 (1.0-2.3); Alkaline Phosphatase 103 U/L (39-117); Bilirubin,Direct < 0.2 mg/dL (0.0-0.3); Bilirubin,Total 0.7 mg/dL (0.0-1.0); Blood Urea Nitrogen 16 mg/dl (6-20); Calcium 8.5 mg/dl (8.6-10.4); Carbon Dioxide 23 mmol/L (22-30); Chloride 99 mmol/L (96-108); Globulin 2.3 gm/dL (2.2-3.7); Glomerular Filtration Rate 104; Glucose 266 mg/dL (70-105); Lactate Dehydrogenase 169 U/L (94-250); Phosphorous 3.2 mg/dL (2.7-4.5); Triglycerides 367 mg/dl (<150); Uric Acid 3.7 mg/dL (2.5-8.0)
[2018-11-11] MEDS: metFORMIN 850 MG TABLET PO SCH (07:20)
[2018-11-11] MEDS: glipiZIDE 5 MG TABLET PO SCH (07:21)
[2018-11-11] MEDS: INSULIN LISPRO 1 UNIT/0.01 ML UNIT SQ SCH ×2 (07:22→11:32)
[2018-11-11] MEDS: INSULIN GLARGINE, HUMAN 1 UNIT/0.01 ML SQ SCH (07:22)
[2018-11-11] MEDS: ESOMEPRAZOLE 40 MG VIAL IV SCH (07:23)
[2018-11-11] MEDS: FLUoxetine HCL 20 MG CAPSULE PO SCH (08:53)
[2018-11-11] MEDS: LOSARTAN 50 MG TABLET PO SCH (08:53)
[2018-11-11] MEDS: HYDROCHLOROTHIAZIDE 12.5 MG CAPSULE PO SCH (08:53)
[2018-11-11] MEDS: HEPARIN 5,000 UNIT/ML VIAL SQ SCH (08:55)
[2018-11-11] MEDS: INDOMETHACIN 25 MG CAPSULE PO SCH (08:57)
[2018-11-11] MEDS ORDERED: INSULIN GLARGINE, HUMAN 1 UNIT/0.01 ML SQ SCH ×2 (09:00→21:00)
--- NOTE | 2018-11-11 10:49 | Magnetic Resonance Report ---
History: Headaches, visual disturbance, diabetes, vomiting and evaluate for intracranial mass TECHNIQUE: Multiplanar imaging was performed using multiple pulse sequences. 20 mL of MultiHance contrast was injected. Postcontrast axial and coronal T1-weighted views were obtained. FINDINGS: The brain appears normal without evidence of a mass, hemorrhage, infarct, inflammation or demyelinating disease. The ventricles and cisterns are normal. The orbits appear normal and symmetric. No abnormality is seen along the visual pathways. There is no evidence of an aneurysm or vascular anomaly. The postcontrast views showed no abnormal enhancement. Comparison with the head CT done on 11/09/18 shows no significant change. IMPRESSION: Normal brain Interpreted and Authenticated by: Keo Stewart 11/11/18
[2018-11-11] MEDS ORDERED: INSULIN REGULAR, HUMAN 1 UNIT/0.01 ML UNIT IV ONE (12:43)
--- NOTE | 2018-11-11 14:45 | Discharge Summary ---
Medical - DS: Prov Patient information: Note initiated : 11/11/18 at 2:37 pm Service Date, if different from initiated Date: [] Patient: Aaron Calle 48 y/o M admitted on 11/09/18 for nausea,vomiting,diarrhea. Chief Complaint: [] Date of admission: 11/09/18 03:00 Discharge date: 11/11/18 Primary care physician: SELENA Mireles Consults: 11/09/18 Consult to Physician [CONS] Stat Comment: Consulting Provider: Lucia Romero Reason For Exam: Physician to Consult Discharging clinician: Lucia Romero Medical - DS: Meds - Discharge Medications Prescriptions: Insulin Glargine, Human [Lantus] 40 unit SQ QHS #5 vial Syringe and Needle,Insulin,1Ml [Insulin Syringe] 1 each MC QHS #100 disp.syrin Alcohol Antiseptic Pads [True Comfort Alcohol Pads] 1 each TP DAILY #100 med..pad Blood Sugar Diagnostic [True Metrix Glucose Test Strip] 1 each MC DAILY #100 strip Blood-Glucose Meter [True Metrix Blood Glucose Mtr] 1 each MC DAILY #1 each glipiZIDE [Glucotrol] 5 mg PO BIDAC #60 tab Indomethacin [Indocin] 50 mg PO TID #30 cap Lancets [True Comfort Lancet] 1 each MC DAILY #100 each metFORMIN [Glucophage] 850 mg PO BIDCC #60 tab Active and Home Medications: Home Medications FLUoxetine HCL [PROzac] 20 mg PO DAILY 08/23/18 [History Confirmed 11/10/18 Last Taken 08/22/18] Hydrochlorothiazide [Oretic] 12.5 mg PO DAILY 08/23/18 [History Confirmed 11/10/18 Last Taken 08/22/18] Losartan [Cozaar] 100 mg PO DAILY 08/23/18 [History Confirmed 11/10/18 Last Taken 08/22/18] Promethazine [Phenergan] 25 mg PO Q6HP PRN 11/10/18 [History Confirmed 11/10/18 Last Taken 11/07/18] Medical - DS: Hosp Hospital course: Mr. Calle is a 48 year old M history of obesity, presents to the emergency room today for evaluation of nausea vomiting diarrhea. The patient had hip surgery done recently, post surgery there was a concern for bursitis and the patient was on antibiotics and some medications from orthopedics. The patient developed nausea and vomiting approximately 3 days ago, his symptoms have progressively gotten worse since then. He has been drinking a lot of water but still felt thirsty, was dizzy. He was not able to keep much food down. He was seen in urgent care center at [facility], x-ray abdomen was done which is interpreted as negative but there was concern for some constipation and the patient was given magnesium citrate. After demonstration of magnesium citrate patient developed diarrhea, the patient continued to have diarrhea nausea and vomiting now. Last episode of diarrhea was yesterday morning. He continued to have nausea and vomiting late last night at which time they decided to bring him to the emergency room. He denies any cough shortness of breath or chest pain, he admits to having visual black spots and headaches does have a history of migraines, he has nausea vomiting and diarrhea, he has abdominal pain associated with same, he has some pain at the left hip at the site of surgery but does not feel that it is any worse than before. He admits to having subjective sensation of chills but no documented fever. The patient denies any other acute complaint or concern. On presenting to the emergency room patient was hemodynamically stable saturating well on room air. His labs showed he had a glucose level of more than 1000, no obvious evidence of infection according to the ED provider however basic work-up was not completed, UA is negative for infection. Patient is pending a chest x-ray CT abdomen and pelvis which should cover the hip region also. Patient was admitted to the ICU for management of DKA and hyperosmolar state. Patient has an A1c of 6.5 according to his which was diagnosed a few months ago his primary care provider was going to work this up and start the patient on medications. 11/10 Patient seen and examined, his glucose level is high but DKA has resolved, anion gap is normal of was off the drip yesterday. Sugars still running between 200 300 The patient had been given a course of oral steroids as well as steroid injection in the hip couple weeks ago. I believe this was likely the precipitant that resulted in very high glucose levels. Presently the patient has 2 main concerns. He has pain in his right toe, he does have a history of gout pain is moderate to severe worse with movement. The patient also has a headache he has scotoma on his left eye vision which has not improved since yesterday. He does have a history of migraines. But has not had a migraine headache for a while. The patient's CT head is negative he has had a CT abdomen and pelvis which was done results of which are still pending there are some lesions on the liver about which I am concerned but I would like an official radiology report before remove further to investigate this. Start the patient on glipizide as well as metformin continue insulin and sliding scale to control the glucose values. The right toe pain likely related to gout, will start the patient on Indocid this should also help with the headache and monitor. 11/11 Patient seen and examined, no acute overnight events still has some visual scotoma. MRI of the head was done is negative ESR is negative. At this point in time patient likely has persistent migraine headaches, advised to follow up with opthal and neurology as outpatient Prn nsaids and oxycodone for pain The patient's glucose has come down, is around 150 -250 right now. The patient is going to be discharged on metformin 850 mg twice a day with meals, glipizide 5 mill grams twice a day as well as Lantus 40 units at bedtime. PCP to adjust dose at follow-up, I am not starting the patient on the newer antidiabetic drugs as I am not sure what is covered by his formulary. Patient developed toe pain in the right toe, does have a history of gout does have significant metabolic imbalance and likely precipitate acute gout. I am not using steroids as it was the use of steroids that precipitated acute rise in the patient's glucose values. Patient has been started on indomethacin 50 mg 3 times a day which is helping the patient's pain. I am giving him a 10-day supply however he can stop this medication once he is asymptomatic for 48 hours The patient has headache with scotoma bilaterally, at this time I am unable to identify the reason for his headache he does have a history of migraine, the patient is on NSAIDs. Head CT is negative ESR is negative MRI brain is negative. I would advise him to follow-up with an data analytics analyst and neurologist as an outpatient Discharge diagnosis: DM uncntrolled, Acute Gout, - Time Spent with Patient Total time spent providing and/or coordinating discharge services: Greater than 30 minutes Medical - DS: Exam - Constitutional Vitals: Vital Signs Temp Pulse Pulse Resp BP BP Pulse Ox 07/22/19 12:00 97.3 F 81 18 121/87 96 11/11/18 06:59 97.0 F 77 18 119/92 96 11/11/18 04:00 97.6 F 88 22 138/84 95 11/11/18 00:00 97.6 F 84 20 144/88 95 11/10/18 20:00 97.5 F 88 20 142/89 94 11/10/18 15:55 97.2 F 88 16 106/76 95 Intake and Output 11/11/18 11/11/18 11/11/18 05:59 13:59 21:59 Intake Total 1000 240 Balance 1000 240 Intake: IV 1000 Lactated Ringers 1,000 ml @ 75 1000 mls/hr IV .[id number] ERNA Rx#: [id number] Oral 240 Other: Meal Lunch Percent of Meal Consumed 100% # Voids 2 # Bowel Movements 1 Weight 276 lb 6.4 oz Patient Weight 11/12/18 05:59 Weight 276 lb 6.4 oz Additional comments: Constitutional; Afebrile, cooperative, alert, not in distress. Eyes- No icterus, , No periorbital swelling Ears- Ext ear normal, hearing normal to conversation. Neck- Midline trachea, supple Respiratory system: Air Entry equal on both sides, No crackles or wheezing, no rhonchi. CVS- Rate rhythm regular, S1,S2 heard, no gallop, no rub. 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 Toe inflammation improved, pain improved Medical - DS: Data Labs on day of discharge: Labs from last 24 hours 11/11/18 11/11/18 11/11/18 11:32 03:40 03:40 WBC RBC Hgb Hct MCV MCH MCHC RDW Plt Count MPV Gran % Lymph % (Auto) [place] % (Auto) Eos % (Auto) Baso % (Auto) Gran # Lymph # (Auto) [place] # (Auto) Eos # (Auto) Baso # (Auto) ESR 15 TNP Sodium 133 Potassium 3.4 Chloride 99 Carbon Dioxide 23 Anion Gap 11.0 BUN 16 Creatinine 0.8 GFR Calculation 104 Glucose 266 H Uric Acid 3.7 Calcium 8.5 L Phosphorus 3.2 Magnesium 1.8 Total Bilirubin 0.7 Direct Bilirubin < 0.2 GGT 47 AST 26 ALT 53 H Alkaline Phosphatase 103 Lactate Dehydrogenase 169 Total Protein 5.7 L Albumin 3.4 Globulin 2.3 Albumin/Globulin Ratio 1.5 Triglycerides 367 H 11/11/18 03:40 WBC 6.5 RBC 4.45 L Hgb 13.6 Hct 39.1 L MCV 87.7 MCH 30.6 MCHC 34.9 RDW 11.5 Plt Count 160 MPV 9.8 Gran % 47.5 Lymph % (Auto) 39.9 [place] % (Auto) 8.5 Eos % (Auto) 3.6 Baso % (Auto) 0.5 Gran # 3.1 Lymph # (Auto) 2.6 [place] # (Auto) 0.6 Eos # (Auto) 0.2 Baso # (Auto) 0 ESR Sodium Potassium Chloride Carbon Dioxide Anion Gap BUN Creatinine GFR Calculation Glucose Uric Acid Calcium Phosphorus Magnesium Total Bilirubin Direct Bilirubin GGT AST ALT Alkaline Phosphatase Lactate Dehydrogenase Total Protein Albumin Globulin Albumin/Globulin Ratio Triglycerides Medical - DS: A/P - Patient/Caregiver Discharge Instructions Activity: increase activity as tolerated Diet: Consistent Carbohydrate Additional Instructions: Please take medications as prescribed I have started you on metformin 850 mg twice a day take this medication with food. I have also started you on glipizide 5 mg twice a day, take this medication also with food Take insulin Lantus 40 units at bedtime, Check your glucose value every morning before breakfast keep a log of these values and take them with you to your appointment with your primary care provider If your glucose value in the morning is more than 130, increase the dose of Lantus by 5 units, until your fasting glucose value( before breakfast glucose) is less than 130. If your glucose value drops less than 90, cut down your nighttime insulin dose by 5 units. I am also prescribing indomethacin for your toe pain which is likely from acute gout. Take this medication 3 times a day with meals, I would advise you to take [id number] Prilosec as this medication can be hard on the stomach. Stop this medication once your toe pain is better for at least 48 hours Please make an appointment with an data analytics analyst or an ventilating engineer for evaluation of your eyes to see if there is any reason for you to have blurry vision and black spots. Follow-up with your primary care provider with regards to the headache he may refer you to a neurologist for further evaluation. Keep yourself very well-hydrated, go to the emergency room if you have any new symptoms fever chest pain or any other acute concern - Follow up Plan Follow up with: Armen Foster ARNP [Primary Care Provider] - 11/18/18 3:00 pm (Please arrive 15 minutes early) Disposition: Home, Self-Care Prognosis: Good Rehab Potential: Good I certify that the patient requires SNF services: No Overall status at discharge: patient is progressing back to baseline Medical - DS: Qual - VTE Deep Vein Thrombosis/Pulmonary Embolism Present on Admission: No
--- NOTE | 2018-11-12 12:17 | Cat Scan Report ---
CLINICAL INFORMATION: Diabetic ketoacidosis COMPARISON: None. TECHNIQUE: Following enteric contrast, 80 cc of Isovue-300 were injected intravenously, and 60 seconds later, 0.625 mm helical slices were obtained from the mid heart through the subtrochanteric regions. Following reconstruction, 2.5 mm sagittal, coronal and axial reformatted images were processed and reviewed at bone, lung and soft tissue windows. Five minutes later, 0.625 mm helical slices were obtained from the mid heart through the kidneys and viewed at soft tissue windows.The exam was performed using radiation dose optimization techniques including, but not limited to, automated exposure control, adjustment of the mA and/or kV according to patient size and use of iterative reconstruction technique. FINDINGS: Lung bases show mild minor atelectasis and/or scarring. No effusion. The visualized heart is unremarkable. Images should the abdomen show moderate fatty change within the liver. There are higher attenuation lesions which have well-circumscribed borders and do not distort liver structure: This should represent focal fat sparin cm in the posterior segment of the lateral segment left hepatic lobe (image 51, 3 cm in the inferior medial segment left hepatic lobe image 55 and 12.9 mm uzair hepatis image 65. Gallbladder and bile ducts, both kidneys, adrenal glands, spleen, pancreas and aorta including aortic branches are normal in size, configuration and attenuation without focal lesion. There is no free air, free fluid or adenopathy. Pelvic images show prostate seminal vesicles and urinary bladder to be normal. Sigmoid diverticulosis is noted, but no evidence of diverticulitis. The remainder of the colon, appendix small bowel and stomach are normal. Bone windows show no osseous abnormality IMPRESSION: 1. Moderate fatty change within the liver. Well-circumscribed high attenuation regions in the uzair hepatis and inferior left hepatic lobe should represent focal fat sparing. 2. Sigmoid diverticulosis, but no CT support for diverticulitis. Interpreted and Authenticated by: Nixon Jackson 11/09/18
== END 2018-11-11 16:42 | disposition home or self-care (01) | DRG 639 ==
LOC: ED 22:51 → ICU 11-09 03:00
PROVIDERS: ADMIT Internal Medicine; ATTEND Internal Medicine

== ENCOUNTER 2020-11-02 12:14 | Inpatient (IN) ==
[2020-11-02 15:12] LABS: POC Blood Urea Nitrogen 15 mg/dL (6-20); POC CO2 24 mmol/L (22-30); POC Calcium, Ionized 1.26 mmEq/L (1.16-1.32); POC Chloride 100 mEq/L (96-108); POC Creatinine 0.9 mg/dL (0.6-1.2); POC Glucose, Random 201 mg/dL (70-105); POC Hematocrit 44 % (41-55); POC Potassium 4.1 mEql/L (3.3-5.1); POC Sodium 139 mEq/L (133-145)
[2020-11-02] MEDS ORDERED: MIDAZOLAM 2 MG/2 ML VIAL IV ONE (15:25)
[2020-11-02 15:37] LABS: Basophils # (Auto) 0.04 K/mcL (0.00-0.20); Basophils % (Auto) 0.4 % (0.0-2.0); Eosinophils # (Auto) 0.21 K/mcL (0.00-0.70); Eosinophils % (Auto) 2.1 % (0.0-7.0); Hematocrit 43.3 % (41.0-55.0); Hemoglobin 15.7 g/dL (13.5-16.5); Lymphocytes # (Auto) 2.79 K/mcL (1.50-4.80); Mean Cell Volume 89.6 fL (80.0-100.0); Mean Corpuscular HGB Conc 36.3 g/dL (31.0-36.0); Mean Platelet Volume 10.6 fL (7.4-10.4); Monocytes # (Auto) 0.71 K/mcL (0.10-0.90); Monocytes % (Auto) 7.1 % (1.0-12.0); Neutrophils % (Auto) 62.4 % (38.0-78.0); Platelet Count 185 K/mcL (140-440); RBC 4.83 M/mcL (4.50-5.90); Red Cell Distribution Width 12.8 % (11.5-14.5)
[2020-11-02] MEDS: morphine 4 MG/ML VIAL IV PRN ×3 (15:41→17:38)
--- NOTE | 2020-11-02 15:42 | Emergency Department Note ---
HPI General Chief complaint: Back Pain/Injury Time Seen by Provider: 11/02/20 12:18 Source: patient and family Mode of arrival: ambulatory Limitations: no limitations History of Present Illness HPI Narrative: Narrative: This patient presents with a complaint of low back pain and incontinence. Patient has had low back pain and is followed by the pain clinic. A couple of days ago he was moving some boxes and a bit later noted that he had been incontinent to urine. He reports he has a mild increase in his typical low back pain but nothing excruciating. He has not previously experienced any incontinence. He reports multiple episodes of urine and stool incontinence over the last couple of days. He did call the pain clinic as well as his regular doctor who advised he should come to the emergency department. He does have some pain rating into the left hip which is new. He is not noted any weakness in his legs. He is not had any falls or trauma. He does not feel as if he has any numbness, tingling, weakness or saddle anesthesia. Related Data Home Medications Medication Instructions Recorded Confirmed fluoxetine 20 mg PO DAILY 08/23/18 10/04/20 hydrochlorothiazide 12.5 mg PO DAILY 08/23/18 10/04/20 losartan 100 mg PO DAILY 08/23/18 10/04/20 promethazine 25 mg PO Q6HP PRN 11/10/18 10/04/20 amlodipine 10 mg tablet 10 mg PO QDAY 09/10/20 10/04/20 bupropion HCl 150 mg 24 hr tablet, 150 mg PO QAM 09/10/20 10/04/20 extended release hydrocodone 10 mg-acetaminophen 1 tab PO QHS PRN 09/10/20 10/04/20 325 mg tablet tadalafil 10 mg tablet 10 mg PO QDAY PRN 09/10/20 10/04/20 Previous Rx's Medication Instructions Recorded alcohol swabs 1 each TP DAILY #100 med..pad 11/11/18 blood sugar diagnostic #100 strip 11/11/18 blood-glucose meter #1 each 11/11/18 glipizide 5 mg PO BIDAC #60 tab 11/11/18 indomethacin 50 mg PO TID #30 cap 11/11/18 insulin glargine 40 unit SQ QHS #5 vial 11/11/18 insulin syringes (disposable) #100 disp.syrin 11/11/18 lancets #100 each 11/11/18 metformin 850 mg PO BIDCC #60 tab 11/11/18 apixaban 5 mg PO BID #60 tab 11/25/18 methocarbamol 750 mg tablet See Rx Instructions PO .COMPLEX 09/15/20 #120 tab MDD 4 pregabalin 75 mg capsule 75 mg PO QHS #30 cap MDD 1 capsule 09/17/20 Allergies Allergy/AdvReac Type Severity Reaction Status Date / Time Avocado Allergy Severe Swells up, Verified 09/15/20 16:03 throat closes, hives coconut Allergy Severe Swells up, Verified 09/15/20 16:03 throat closes, hives sulfamethoxazole Allergy Mild Rash Verified 09/15/20 16:03 [From Sulfamethoprim] trimethoprim Allergy Mild Rash Verified 09/15/20 16:03 [From Sulfamethoprim] prednisone Allergy Unknown Critical Unverified 09/15/20 16:03 Review of Systems ROS ROS Narrative: Narrative: Pertinent positives and negatives as noted in HPI. All other systems reviewed and negative. PFSH Narrative Patient History Narrative: Narrative: Medical/Surgical/Family History All Active Problems (Updated 11/02/20 @ 21:22 by Krystina Berkowitz PA-C) Intractable back pain (Acute) Left leg paresthesias (Acute) Acute exacerbation of chronic low back pain (Acute) Bilateral sacroiliitis (Acute) Chronic SI joint pain (Acute) Radiculopathy of lumbar region (Acute) Erectile dysfunction (Chronic) Allergic rhinitis (Chronic) GERD (gastroesophageal reflux disease) (Chronic) Mixed hyperlipidemia (Chronic) Fatty liver (Chronic) Pain of left hip joint (Chronic) Depression with anxiety (Chronic) Colon polyps (Chronic) Skin cancer (Chronic) Carpal tunnel syndrome, right upper limb (Chronic) Rosacea (Chronic) Type 2 diabetes mellitus with mild nonproliferative diabetic retinopathy without macular edema, unspecified eye (Chronic) Strain of other muscles, fascia and tendons at shoulder and upper arm level, right arm, initial encounter (Chronic) Body mass index [BMI]40.0-44.9, adult (Chronic) Acute maxillary sinusitis, unspecified (Chronic) Lumbar pain (Chronic) Lumbar discogenic pain syndrome (Chronic) Hyperglycemia due to type 2 diabetes mellitus (Chronic) Syncope and collapse (Chronic) Convulsions (Chronic) Vasovagal syncope (Chronic) DVT (deep venous thrombosis) (Chronic) History of tobacco use (Chronic) Work related injury (Chronic ~02/2017) Left testicular pain (Chronic ~02/2017) Left groin pain (Chronic ~02/2017) Carpal tunnel syndrome, bilateral (Chronic ~2012) Migraines (Chronic ~1987) Hyperlipidemia (Chronic) Hypertension, essential (Chronic ~2007) Gout (Chronic ~2009) Medical History Acute maxillary sinusitis, unspecified Allergic rhinitis Bilateral sacroiliitis Body mass index [BMI]40.0-44.9, adult Carpal tunnel syndrome, bilateral (~2012) Carpal tunnel syndrome, right upper limb Chronic SI joint pain Colon polyps Depression with anxiety Erectile dysfunction Fatty liver GERD (gastroesophageal reflux disease) Gout (~2009) History of tobacco use Hyperlipidemia Hypertension, essential (~2007) Left groin pain (~02/2017) Injured while at work Left testicular pain (~02/2017) Injured while at work Lumbar discogenic pain syndrome Lumbar pain Migraines (~1987) Mixed hyperlipidemia Pain of left hip joint Rosacea Skin cancer Strain of other muscles, fascia and tendons at shoulder and upper arm level, right arm, initial encounter Type 2 diabetes mellitus with mild nonproliferative diabetic retinopathy without macular edema, unspecified eye Work related injury (~02/2017) Surgical History H/O colonoscopy 2012 H/O shoulder surgery 2015 History of herniorrhaphy x2 [id number] Hx of appendectomy 2004 Family History Mother Lung cancer Seizures Father Heart attack Family/Other Migraines Uncles-paternal Social History Smoking Status: Current some day smoker Alcohol Intake Frequency: a few times a month Substance Use: does not use Exam Narrative Narrative: Narrative: Vital signs noted General: mild distress. Skin: Warm. Dry. No rash. Normal color. Eyes: PERRL. EOMI. Mouth: Membranes moist. Normal inspection. Neck: Good ROM. No meningeal signs. Supple. Cardiovascular: Regular rate and rhythm. No murmur. Respiratory: No respiratory distress. Breath sounds equal. No wheezing/rales/rhonchi. Gastrointestinal: Abdomen soft. No tenderness. No distention. Normal bowel sounds. No rebound tenderness or guarding. Rectal tone deficit with patient unable to clench. Back: No cervical or thoracic or cervical tenderness. Mild discomfort to palpation over the lumbar spine without obvious deformity or step-off. Extremities: No tenderness. No swelling. No erythema. No edema. Good peripheral pulses x 4. Patellar reflexes 2+ bilaterally. Neurological: No focal neurological deficits observed. Alert. Oriented x 3. Decree sensation in the right leg with loss of sensation to sharp dull. Level of deficit is at the umbilicus and affecting only the right side. No motor function deficit. General Limitations: no limitations Course Course Course Narrative: An IV established patient medicated with morphine for pain Labs ordered and reviewed UA is negative MRI lumbar spine is ordered due to concern for cauda equina given the patient's new symptoms of incontinence. Patient has claustrophobia and cannot tolerate imaging without something for anxiety. He is given Versed for anxiety. MRI is reported by radiology to be without findings consistent with cauda equina or other pathology to explain the patient's symptoms. I did consult with neurosurgeon Dr. Maldonado, who after reviewing the patient's case and symptom recommend thoracic MRI. Unfortunately we do not have MRI at this facility. The MRI can be completed in the morning. The patient has required multiple doses of pain medication with persistent discomfort, despite pain medication administration. He is discussed with the hospitalist service for admission of intractable pain with MRI to be completed in the morning. Dr. Park is made aware that the patient will be admitted and he will consult regarding any pathology findings in the morning. Vital Signs Vital signs: Vital Signs Temperature 98.6 F 11/02/20 12:22 Pulse Rate 80 11/02/20 12:22 Respiratory Rate 16 11/02/20 12:22 Blood Pressure 151/94 11/02/20 12:22 Pulse Oximetry (%) 97 11/02/20 12:22 Temperature 98.6 F 11/02/20 12:22 Pulse Rate 58 L 11/02/20 20:46 Respiratory Rate 16 11/02/20 12:22 Blood Pressure 114/65 11/02/20 20:31 Pulse Oximetry (%) 91 11/02/20 20:46 [facility] MDM Narrative Medical decision making narrative: Narrative: Lab Data Result diagrams: 11/02/20 14:58 Labs: Lab Results 0711/02/20 11/02/20 Range/Units 14:58 14:58 14:58 WBC 10.0 (4.5-11.0) K/mcL RBC 4.83 (4.50-5.90) M/mcL Hgb 15.7 (13.5-16.5) g/dL Hct 43.3 (41.0-55.0) % POC Hct 44 (41-55) % MCV 89.6 (80.0-100.0) fL MCH 32.5 (26.0-34.0) pg MCHC 36.3 H (31.0-36.0) g/dL RDW 12.8 (11.5-14.5) % Plt Count 185 (140-440) K/mcL MPV 10.6 H (7.4-10.4) fL Neut % (Auto) 62.4 (38.0-78.0) % Lymph % (Auto) 28.0 (15.0-49.0) % [place] % (Auto) 7.1 (1.0-12.0) % Eos % (Auto) 2.1 (0.0-7.0) % Baso % (Auto) 0.4 (0.0-2.0) % Lymph # (Auto) 2.79 (1.50-4.80) K/mcL [place] # (Auto) 0.71 (0.10-0.90) K/mcL Eos # (Auto) 0.21 (0.00-0.70) K/mcL Baso # (Auto) 0.04 (0.00-0.20) K/mcL Absolute Neutrophils 6.22 (1.80-8.00) K/mcL ESR 4 (0-15) mm/hr POC Sodium 139 (133-145) mEq/L POC Potassium 4.1 (3.3-5.1) mEql/L POC Chloride 100 (96-108) mEq/L POC Total CO2 24 (22-30) mmol/L POC BUN 15 (6-20) mg/dL POC Creatinine 0.9 (0.6-1.2) mg/dL POC Glucose 201 H (70-105) mg/dL POC WB Ioniz Calcium 1.26 (1.16-1.32) mmEq/L C-Reactive Protein (0.03-0.80) mg/dL Urine Color Urine Appearance (Clear) Urine pH (5.0-9.0) Ur Specific Joice (1.000-1.035) Urine Protein (Negative) mg/dL Urine Glucose (UA) (Negative) mg/dL Urine Ketones (Negative) mg/dL Urine Occult Blood (Negative) mg/dL Urine Nitrate (Negative) Urine Bilirubin (Negative) mg/dL Urine Urobilinogen mg/dL Ur Leukocyte Esterase (Negative) /ug Urine RBC (0-3) /hpf Urine WBC (0-4) /hpf Ur Squamous Epith Cells (0-4) /hpf Urine Bacteria (0) /hpf Ur Culture Indicated? 11/02/20 11/02/20 Range/Units 14:58 18:15 WBC (4.5-11.0) K/mcL RBC (4.50-5.90) M/mcL Hgb (13.5-16.5) g/dL Hct (41.0-55.0) % POC Hct (41-55) % MCV (80.0-100.0) fL MCH (26.0-34.0) pg MCHC (31.0-36.0) g/dL RDW (11.5-14.5) % Plt Count (140-440) K/mcL MPV (7.4-10.4) fL Neut % (Auto) (38.0-78.0) % Lymph % (Auto) (15.0-49.0) % [place] % (Auto) (1.0-12.0) % Eos % (Auto) (0.0-7.0) % Baso % (Auto) (0.0-2.0) % Lymph # (Auto) (1.50-4.80) K/mcL [place] # (Auto) (0.10-0.90) K/mcL Eos # (Auto) (0.00-0.70) K/mcL Baso # (Auto) (0.00-0.20) K/mcL Absolute Neutrophils (1.80-8.00) K/mcL ESR (0-15) mm/hr POC Sodium (133-145) mEq/L POC Potassium (3.3-5.1) mEql/L POC Chloride (96-108) mEq/L POC Total CO2 (22-30) mmol/L POC BUN (6-20) mg/dL POC Creatinine (0.6-1.2) mg/dL POC Glucose (70-105) mg/dL POC WB Ioniz Calcium (1.16-1.32) mmEq/L C-Reactive Protein 0.30 (0.03-0.80) mg/dL Urine Color Straw Urine Appearance Clear (Clear) Urine pH 6.0 (5.0-9.0) Ur Specific Joice 1.010 (1.000-1.035) Urine Protein Negative (Negative) mg/dL Urine Glucose (UA) 150 A (Negative) mg/dL Urine Ketones Negative (Negative) mg/dL Urine Occult Blood Negative (Negative) mg/dL Urine Nitrate Negative (Negative) Urine Bilirubin Negative (Negative) mg/dL Urine Urobilinogen Negative mg/dL Ur Leukocyte Esterase Negative (Negative) /ug Urine RBC < 1 (0-3) /hpf Urine WBC 0 (0-4) /hpf Ur Squamous Epith Cells 0 (0-4) /hpf Urine Bacteria None (0) /hpf Ur Culture Indicated? No ED POC Tests ED POC Tests: HAL - SARS Antigen Negative Discharge Plan Patient/Caregiver Discharge Instructions Pt seen by PUBLIC HEALTH CLINICAL NURSE SPECIALIST/PA only: Yes Clinical Impression: Intractable back pain, Left leg paresthesias, Acute exacerbation of chronic low back pain Patient Disposition: Xfer As Outpt/Obs ([facility]) Follow up with: Tom Garza DO [Primary Care Provider] - Prescriptions: No Action hydrocodone-acetaminophen 10-325 mg tablet 1 tab PO QHS PRNRF: 0 amlodipine 10 mg tablet 10 mg PO QDAY RF: 0 tadalafil [Cialis] 10 mg tablet 10 mg PO QDAY PRNRF: 0 bupropion HCl 150 mg tablet extended release 24 hr 150 mg PO QAM RF: 0 methocarbamol 750 mg tablet See Rx Instructions PO .COMPLEX MDD 4 Qty: 120 RF: 0 pregabalin [Lyrica] 75 mg capsule 75 mg PO QHS MDD 1 capsule Qty: 30 RF: 0 hydrochlorothiazide 12.5 MG capsule 12.5 mg PO DAILY RF: 0 losartan 100 MG tablet 100 mg PO DAILY RF: 0 fluoxetine 20 MG capsule 20 mg PO DAILY RF: 0 promethazine 25 MG tablet 25 mg PO Q6HP PRN (Reason: Nausea) RF: 0 insulin glargine 1 UNIT/0.01 ML unit 40 unit SQ QHS Qty: 5 RF: 0 metformin 850 MG tablet 850 mg PO BIDCC Qty: 60 RF: 0 indomethacin 25 MG capsule 50 mg PO TID Qty: 30 RF: 0 glipizide 5 MG tablet 5 mg PO BIDAC Qty: 60 RF: 0 (DME) insulin syringes (disposable) 1 EACH syringe 1 each MC QHS Qty: 100 RF: 0 (DME) blood-glucose meter 1 EACH misc 1 each MC DAILY Qty: 1 RF: 0 (DME) blood sugar diagnostic 1 EACH strip 1 each MC DAILY Qty: 100 RF: 0 alcohol swabs 1 EACH pads, medicated 1 each TP DAILY Qty: 100 RF: 0 (DME) lancets 1 EACH misc 1 each MC DAILY Qty: 100 RF: 0 apixaban 5 MG tablet 5 mg PO BID Qty: 60 RF: 0
--- NOTE | 2020-11-02 17:41 | Magnetic Resonance Report ---
CLINICAL INFORMATION: Low back pain with right-sided radiculopathy. Lifting injury 08/25/2020. Bladder and bowel incontinence COMPARISON: 09/07/2020 TECHNIQUE: Sagittal T1 FLAIR, STIR, fast spin echo T2, axial T2 weighted images were acquired. FINDINGS: The lumbar spine is normal in curvature and alignment. There is diminished T1 marrow signal which suggests a preponderance of red hematopoetic elements. There are no focal osseous lesions. The conus medullaris ends at T12 and is homogeneous signal. Soft tissues are normal. Urinary bladder is moderately distended at the time of exam. The T11-T12, T12-L1, L1-2 and L2-3 disc levels are normal. At L3-4, mild broad disc protrusion and facet arthropathy result in mild central canal, bilateral lateral recess and IV foraminal narrowing. This may touch the exiting L3 nerve roots. No change At L4-5, mild broad disc protrusion and facet arthropathy result in mild central canal, moderate left and mild right IV foraminal narrowing. There is mild impingement of the exiting L4 nerve roots-no change. At L5-S1, there is mild annular bulge and moderate facet arthropathy. IMPRESSION: 1. No evidence of cauda equina pathology. 2. Multilevel degeneration-as described. 3. Urinary bladder is moderately distended at the time of exam Interpreted and Authenticated by: Nixon Jackson 11/02/20
[2020-11-02] MEDS: HYDROmorphone 0.5 MG/0.5 ML SYRINGE IV PRN ×3 (18:30→20:56)
[2020-11-02 19:51] LABS: Appearance,Urine CLEAR (Clear); Bilirubin,Urine Negative (Negative); Color,Urine STRAW; Culture Indicated,Urine No; Glucose,Urine (UA) 150 mg/dL (Negative); Ketones,Urine Negative (Negative); Leukocyte Esterase,Urine Negative /ug (Negative); Nitrate,Urine Negative (Negative); Protein,Urine Negative (Negative); Urine Blood Negative (Negative); Urine RBC < 1 /hpf (0-3); Urine Squamous Epithelial Cell 0 /hpf (0-4); Urine WBC 0 /hpf (0-4); Urobilinogen,Urine Negative
--- NOTE | 2020-11-02 21:43 | Internal Med History&Physical ---
HPI History of Present Illness Patient information: Note initiated : 11/02/20 at 9:40 pm Service Date, if different from initiated Date: [] Patient: Aaron Calle 50 y/o M admitted on for Back pain. Chief Complaint: [] History of present illness: Mr. Calle is a 50 year old male with a history of hypertension, diabetes mellitus type 2, obesity presenting to the emergency department for progressively worsening back pain, right lower extremity weakness since August. Patient says that now his symptoms are associated with urinary and fecal incontinence which is why he presents to the emergency department now. In the emergency department, the patient had a MRI of his spine which did not show any evidence of cauda equina pathology, there were multi degenerative changes most significant at L3-4 there was a mild broad disc protrusion and facet arthropathy resulting in mild central canal and bilateral recess and IV foraminal narrowing, at L4-5 there was a mild broad disc protrusion and facet arthropathy resulting in moderate left and mild right IV narrowing with mild impingement of the exiting L for nerve root. After reviewing the case with Dr. Kay negative the neurosurgeons available supply and distribution manager, a MRI of the thoracic spine was ordered however unable to be completed at night. The patient was admitted for further work-up that will include the MRI of the thoracic spine in the morning and pain management. Review of systems Constitutional: no fever, fatigue, or weight loss Eyes: no vision changes or pain Cardiovascular: no chest pain, no palpitations Respiratory: no cough or dyspnea Gastrointestinal: no abdominal pain, no nausea, vomiting, or diarrhea Genitourinary: no dysuria or difficulty voiding Musculoskeletal: no arthralgia or myalgia Integumentary: no skin lesion or wound Neurological: positive for right>left lower extremity weakness, right lower extremity sensory deficits distal to umbilical level. Psychiatric: no anxiety or depression Physical exam Head: Atraumatic, normal inspection. Eyes: normal appearance, no scleral icterus. Neck: full ROM Respiratory: no respiratory distress. Cardiovascular: normal rate and rhythm, S1, S2. GI/Abdominal: soft, nontender, no guarding. Extremities: full range of motion, nontender. Neurological: right lower extremity weakness relative to right side, right sided sensory deficit at approximately the umbilical level Psychiatric: normal mood. Skin: warm, normal color PFSH PFSH All Active Problems (Updated 11/02/20 @ 21:22 by Krystina Berkowitz PA-C) Intractable back pain (Acute) Left leg paresthesias (Acute) Acute exacerbation of chronic low back pain (Acute) Bilateral sacroiliitis (Acute) Chronic SI joint pain (Acute) Radiculopathy of lumbar region (Acute) Erectile dysfunction (Chronic) Allergic rhinitis (Chronic) GERD (gastroesophageal reflux disease) (Chronic) Mixed hyperlipidemia (Chronic) Fatty liver (Chronic) Pain of left hip joint (Chronic) Depression with anxiety (Chronic) Colon polyps (Chronic) Skin cancer (Chronic) Carpal tunnel syndrome, right upper limb (Chronic) Rosacea (Chronic) Type 2 diabetes mellitus with mild nonproliferative diabetic retinopathy without macular edema, unspecified eye (Chronic) Strain of other muscles, fascia and tendons at shoulder and upper arm level, right arm, initial encounter (Chronic) Body mass index [BMI]40.0-44.9, adult (Chronic) Acute maxillary sinusitis, unspecified (Chronic) Lumbar pain (Chronic) Lumbar discogenic pain syndrome (Chronic) Hyperglycemia due to type 2 diabetes mellitus (Chronic) Syncope and collapse (Chronic) Convulsions (Chronic) Vasovagal syncope (Chronic) DVT (deep venous thrombosis) (Chronic) History of tobacco use (Chronic) Work related injury (Chronic ~02/2017) Left testicular pain (Chronic ~02/2017) Left groin pain (Chronic ~02/2017) Carpal tunnel syndrome, bilateral (Chronic ~2012) Migraines (Chronic ~1987) Hyperlipidemia (Chronic) Hypertension, essential (Chronic ~2007) Gout (Chronic ~2009) Medical History Acute maxillary sinusitis, unspecified Allergic rhinitis Bilateral sacroiliitis Body mass index [BMI]40.0-44.9, adult Carpal tunnel syndrome, bilateral (~2012) Carpal tunnel syndrome, right upper limb Chronic SI joint pain Colon polyps Depression with anxiety Erectile dysfunction Fatty liver GERD (gastroesophageal reflux disease) Gout (~2009) History of tobacco use Hyperlipidemia Hypertension, essential (~2007) Left groin pain (~02/2017) Injured while at work Left testicular pain (~02/2017) Injured while at work Lumbar discogenic pain syndrome Lumbar pain Migraines (~1987) Mixed hyperlipidemia Pain of left hip joint Rosacea Skin cancer Strain of other muscles, fascia and tendons at shoulder and upper arm level, right arm, initial encounter Type 2 diabetes mellitus with mild nonproliferative diabetic retinopathy without macular edema, unspecified eye Work related injury (~02/2017) Surgical History H/O colonoscopy 2011 H/O shoulder surgery 2014 History of herniorrhaphy x2 [id number] Hx of appendectomy 2004 Family History Mother Lung cancer Seizures Father Heart attack Family/Other Migraines Uncles-paternal Social History (Updated 09/10/20 @ 11:05 by Ele Gordon) household members: spouse marital status: occupational status: unemployed alcohol intake frequency: a few times a month substance use type: does not use MEDS/ALLERGIES Home Medications and Allergies Home Medications Medication Instructions Recorded Confirmed Type fluoxetine 20 mg PO DAILY 08/23/18 10/04/20 History hydrochlorothiazide 12.5 mg PO DAILY 08/23/18 10/04/20 History losartan 100 mg PO DAILY 08/23/18 10/04/20 History promethazine 25 mg PO Q6HP PRN 11/10/18 10/04/20 History alcohol swabs 1 each TP DAILY #100 med..pad 11/11/18 10/04/20 Rx blood sugar diagnostic #100 strip 11/11/18 10/04/20 Rx blood-glucose meter #1 each 11/11/18 10/04/20 Rx glipizide 5 mg PO BIDAC #60 tab 11/11/18 10/04/20 Rx indomethacin 50 mg PO TID #30 cap 11/11/18 10/04/20 Rx insulin glargine 40 unit SQ QHS #5 vial 11/11/18 10/04/20 Rx insulin syringes (disposable) #100 disp.syrin 11/11/18 10/04/20 Rx lancets #100 each 11/11/18 10/04/20 Rx metformin 850 mg PO BIDCC #60 tab 11/11/18 10/04/20 Rx apixaban 5 mg PO BID #60 tab 11/25/18 10/04/20 Rx amlodipine 10 mg tablet 10 mg PO QDAY 09/10/20 10/04/20 History bupropion HCl 150 mg 24 hr tablet, 150 mg PO QAM 09/10/20 10/04/20 History extended release hydrocodone 10 mg-acetaminophen 1 tab PO QHS PRN 09/10/20 10/04/20 History 325 mg tablet tadalafil 10 mg tablet 10 mg PO QDAY PRN 09/10/20 10/04/20 History methocarbamol 750 mg tablet See Rx Instructions PO .COMPLEX 09/15/20 10/04/20 Rx #120 tab MDD 4 pregabalin 75 mg capsule 75 mg PO QHS #30 cap MDD 1 capsule 09/17/20 10/04/20 Rx Allergies Allergy/AdvReac Type Severity Reaction Status Date / Time Avocado Allergy Severe Swells up, Verified 09/15/20 16:03 throat closes, hives coconut Allergy Severe Swells up, Verified 09/15/20 16:03 throat closes, hives sulfamethoxazole Allergy Mild Rash Verified 09/15/20 16:03 [From Sulfamethoprim] trimethoprim Allergy Mild Rash Verified 09/15/20 16:03 [From Sulfamethoprim] prednisone Allergy Unknown Critical Unverified 09/15/20 16:03 EXAM Constitutional Vitals: Temp Pulse Resp BP Pulse Ox 98.6 F 83 16 114/65 94 11/02/20 12:22 11/02/20 21:04 11/02/20 12:22 11/02/20 20:31 11/02/20 21:04 DATA Data Completed and Pending Labs: Labs from last 24 hours 11/02/20 11/02/20 11/02/20 18:15 14:58 14:58 WBC RBC Hgb Hct POC Hct MCV MCH MCHC RDW Plt Count MPV Neut % (Auto) Lymph % (Auto) [place] % (Auto) Eos % (Auto) Baso % (Auto) Lymph # (Auto) [place] # (Auto) Eos # (Auto) Baso # (Auto) Absolute Neutrophils ESR 4 POC Sodium POC Potassium POC Chloride POC Total CO2 POC BUN POC Creatinine POC Glucose POC WB Ioniz Calcium C-Reactive Protein 0.30 Urine Color Straw Urine Appearance Clear Urine pH 6.0 Ur Specific Deputy 1.010 Urine Protein Negative Urine Glucose (UA) 150 A Urine Ketones Negative Urine Occult Blood Negative Urine Nitrate Negative Urine Bilirubin Negative Urine Urobilinogen Negative Ur Leukocyte Esterase Negative Urine RBC < 1 Urine WBC 0 Ur Squamous Epith Cells 0 Urine Bacteria None Ur Culture Indicated? No 11/02/20 11/02/20 14:58 14:58 WBC 10.0 RBC 4.83 Hgb 15.7 Hct 43.3 POC Hct 44 MCV 89.6 MCH 32.5 MCHC 36.3 H RDW 12.8 Plt Count 185 MPV 10.6 H Neut % (Auto) 62.4 Lymph % (Auto) 28.0 [place] % (Auto) 7.1 Eos % (Auto) 2.1 Baso % (Auto) 0.4 Lymph # (Auto) 2.79 [place] # (Auto) 0.71 Eos # (Auto) 0.21 Baso # (Auto) 0.04 Absolute Neutrophils 6.22 ESR POC Sodium 139 POC Potassium 4.1 POC Chloride 100 POC Total CO2 24 POC BUN 15 POC Creatinine 0.9 POC Glucose 201 H POC WB Ioniz Calcium 1.26 C-Reactive Protein Urine Color Urine Appearance Urine pH Ur Specific Deputy Urine Protein Urine Glucose (UA) Urine Ketones Urine Occult Blood Urine Nitrate Urine Bilirubin Urine Urobilinogen Ur Leukocyte Esterase Urine RBC Urine WBC Ur Squamous Epith Cells Urine Bacteria Ur Culture Indicated? A/P Narrative A/P Narrative: Assessment: 50 year old male with hypertension, DM II admitted for MRI workup for progressively worsening back pain, right lower extremity weakness and recent onset of urine a stool incontinence. #Back pain, right lower extremity weakness and sensory deficits, stool and urine incontinence #Hypertension #Diabetes mellitus #Obesity Plan -Analgesics prn. -MRI thoracic spine. -SSI-medium, hold Metformin. -Home medication reconciliation, resume essential meds. -NPO at midnight. -Code status: Full -Disposition: will depend on MRI results. Time Spent With Patient Time: Total time spent is greater than 50% in coordination of care (as documented) at patient's floor/unit and/or counseling patient: QUALITY Stroke Symptom Onset Unknown: No
[2020-11-02] MEDS ORDERED: POLYETHYLENE GLYCOL 3350 17 GM PACKET PO PRN (22:23)
[2020-11-02] MEDS ORDERED: ACETAMINOPHEN 325 MG TABLET PO PRN (22:23)
[2020-11-02] MEDS ORDERED: KETOROLAC 15 MG/ML VIAL IV PRN (22:23)
[2020-11-02] MEDS ORDERED: NALOXONE HCL 0.4 MG/ML VIAL IV PRN (22:23)
[2020-11-02] MEDS ORDERED: ONDANSETRON 4 MG/2 ML VIAL IV PRN (22:23)
[2020-11-02] MEDS: HYDROmorphone 1 MG/ML SYRINGE IV PRN (22:31)
[2020-11-02] MEDS ORDERED: HYDROcodone/APAP 5/325MG TABLET PO ONE ×2 (22:31→22:36)
[2020-11-02] MEDS ORDERED: HYDROmorphone 1 MG/ML SYRINGE ONE (22:31)
[2020-11-02] MEDS: HYDROcodone/APAP 5/325MG TABLET PO PRN (22:31)
[2020-11-02] MEDS: 0.9 % SODIUM CHLORIDE 10 ML SYRINGE IV SCH (22:35)
[2020-11-03] MEDS ORDERED: HYDROmorphone 1 MG/ML SYRINGE ONE ×2 (00:35→04:19)
[2020-11-03] MEDS: HYDROmorphone 1 MG/ML SYRINGE IV PRN ×8 (00:35→21:13)
[2020-11-03] MEDS: HYDROcodone/APAP 5/325MG TABLET PO PRN ×4 (04:19→20:35)
[2020-11-03] MEDS ORDERED: HYDROcodone/APAP 5/325MG TABLET PO ONE (04:19)
[2020-11-03] MEDS: 0.9 % SODIUM CHLORIDE 10 ML SYRINGE IV SCH ×4 (04:20→22:48)
[2020-11-03 07:02] LABS: Estimated Average Glucose(eAG) 177 mg/dL; Hemoglobin A1C 7.8 % Hgb (4.0-6.0)
[2020-11-03] MEDS ORDERED: LORazepam 2 MG/ML VIAL IV ONE (10:12)
[2020-11-03] MEDS ORDERED: DEXTROSE 50% 50 ML VIAL IV PRN (14:11)
[2020-11-03] MEDS ORDERED: DEXTROSE 31 GM ORAL.SUSP PO PRN (14:11)
--- NOTE | 2020-11-03 15:30 | Magnetic Resonance Report ---
CLINICAL INFORMATION: Low back pain and lower extremity weakness. One set bladder and bowel incontinence. Sensory deficit at the umbilicus. COMPARISON: None. TECHNIQUE: Sagittal T2, sagittal T1 FLAIR, sagittal STIR and axial T2 images were acquired. FINDINGS: The thoracic spine is normal in curvature and alignment. There is decreased T1 marrow signal throughout the thoracic spine likely reflecting preponderance of red hematopoetic elements. No focal osseous lesions. Minimal chronic wedging of all mid and lower thoracic vertebral bodies with endplate irregularities compatible with minimal chronic Scheuermann's disease. No soft tissue abnormality. The thoracic cord is normal in contour and caliber and without focal abnormality. All thoracic disc levels show degeneration, but there is no evidence of extrusion or protrusion. The central canal, lateral recesses and IV foramina are all unremarkable. IMPRESSION: 1. No evidence of thoracic cord pathology accounting for the patient's symptoms. Consider lumbar puncture for CSF analysis. 2. Mild chronic Scheuermann's disease mid lower thoracic vertebral bodies. This is very commonly seen and typically asymptomatic. Interpreted and Authenticated by: Nixon Jackson 11/03/20
[2020-11-03] MEDS ORDERED: KETOROLAC 15 MG/ML VIAL IV SCH (16:45)
[2020-11-03] MEDS: INSULIN LISPRO 1 UNIT/0.01 ML UNIT SQ SCH ×2 (16:52→20:40)
[2020-11-03] MEDS: GABAPENTIN 300 MG CAPSULE PO SCH ×3 (17:53→22:16)
--- NOTE | 2020-11-03 19:24 | Internal Med Progress Note ---
SUBJECTIVE Subjective Patient information: Note initiated : 11/03/20 at 7:24 pm Service Date, if different from initiated Date: [] Patient: Aaron Calle 50 y/o M admitted on 11/02/20 for Back pain. Chief Complaint: [] Interval history: Mr. Calle is a 50 year old male with a history of hypertension, diabetes mellitus type 2, obesity presenting to the emergency department for progressively worsening back pain, right lower extremity weakness since August. Patient says that now his symptoms are associated with urinary and fecal incontinence which is why he presents to the emergency department now. In the emergency department, the patient had a MRI of his spine which did not show any evidence of cauda equina pathology, there were multi degenerative changes most significant at L3-4 there was a mild broad disc protrusion and facet arthropathy resulting in mild central canal and bilateral recess and IV foraminal narrowing, at L4-5 there was a mild broad disc protrusion and facet arthropathy resulting in moderate left and mild right IV narrowing with mild impingement of the exiting L for nerve root. After reviewing the case with Dr. Kay negative the neurosurgeons available u.s. commissioner, a MRI of the thoracic spine was ordered however unable to be completed at night. The patient was admitted for further work-up that will include the MRI of the thoracic spine in the morning and pain management. 11/03 MRI thoracic spine did not show any cause for the patient's symptoms, discussed with the patient. The patient should have an EMG for further workup, likely would have to be done outpatient. Started Gabapentin, consulted PT and OT. Will need to wean off opioids. Physical exam Head: Atraumatic, normal inspection. Eyes: normal appearance, no scleral icterus. Neck: full ROM Respiratory: no respiratory distress. Cardiovascular: normal rate and rhythm, S1, S2. GI/Abdominal: soft, nontender, no guarding. Extremities: full range of motion, nontender. Neurological: right lower extremity weakness relative to right side, right sided sensory deficit at approximately the umbilical level Psychiatric: normal mood. Skin: warm, normal color Constitutional Vitals: Vital Signs Temp Pulse Resp BP Pulse Ox 97.3 F 66 20 119/78 97 11/03/20 16:00 11/03/20 16:00 11/03/20 16:00 11/03/20 16:00 11/03/20 16:00 Period Temp Pulse Resp BP Sys/Pierce Pulse Ox Last 24 Hr 97.3 F-98.3 F 54-83 12-20 103-140/65-94 90-97 Intake and Output 11/03/20 11/03/20 11/03/20 05:59 13:59 21:59 Intake Total 200 400 Output Total 2 Balance 200 398 Weight 126.779 kg 126.779 kg Patient Weight 11/04/20 05:59 Weight 126.779 kg Intake & Output: Intake & Output 11/03/20 11/03/20 11/03/20 05:59 13:59 21:59 Intake Total 200 400 Output Total 2 Balance 200 398 Weight 126.779 kg 126.779 kg Intake: Oral 200 400 Output: # of times incontinent of urine 2 Other: Meal Dinner Percent of Meal Consumed 100% Feeding Ability Assist with Tray Set Up # Voids 1 1 OBJ DATA Labs CBC & Chem 7: 11/02/20 14:58 Labs: Abnormal Lab Results 11/03/20 11/02/20 11/02/20 05:41 18:15 14:58 MCHC MPV POC Glucose 201 H Hemoglobin A1c 7.8 H Urine Glucose (UA) 150 A 11/02/20 14:58 MCHC 36.3 H MPV 10.6 H POC Glucose Hemoglobin A1c Urine Glucose (UA) Meds: Medications Acetaminophen (Acetaminophen 325 Mg Tablet) 650 mg PO Q6HP PRN; Protocol PRN Reason: Per Pain Protocol/Fever > 101 Hydrocodone Bitart/Acetaminophen (Hydrocodone/Apap 5/325mg Tablet) 1 tab PO Q4HP PRN; Protocol PRN Reason: Per Pain Protocol Last Admin: 11/03/20 13:27 Dose: 1 tab Documented by: Dextrose (Dextrose 50% 50 Ml Vial) 0 ml IV UD PRN PRN Reason: Hypoglycemia Diagnostic Test (Pha) (Accu-Chek 1 Each Strip) 1 each FS ACHS ERNA Last Admin: 11/03/20 16:52 Dose: 1 each Documented by: Gabapentin (Gabapentin 300 Mg Capsule) 300 mg PO Q8 ERNA Last Admin: 11/03/20 17:54 Dose: 300 mg Documented by: Glucose (Dextrose 31 Gm Oral.Susp) 15 gm PO PRN PRN PRN Reason: Hypoglycemia Hydromorphone HCl (Hydromorphone 1 Mg/Ml Syringe) 1 mg IV Q2HP PRN; Protocol PRN Reason: Per Pain Protocol Last Admin: 11/03/20 15:50 Dose: 1 mg Documented by: Insulin Human Lispro (Insulin Lispro 1 Unit/0.01 Ml Unit) 0 unit SQ [facility]; Protocol Last Admin: 11/03/20 16:52 Dose: Not Given Documented by: Ketorolac Tromethamine (Ketorolac 15 Mg/Ml Vial) 15 mg IV Q6HP [facility] Stop: 11/04/20 21:38 Naloxone HCl (Naloxone Hcl 0.4 Mg/Ml Vial) 0.2 mg IV Q5M PRN PRN Reason: Opiate Reversal Ondansetron HCl (Ondansetron 4 Mg/2 Ml Vial) 4 mg IV Q6HP PRN PRN Reason: Nausea And Vomiting Polyethylene Glycol (Polyethylene Glycol 3350 17 Gm Packet) 17 gm PO DAILYP PRN PRN Reason: Constipation Senna (Sennosides 1 Tablet) 2 tab PO [facility] Sodium Chloride (0.9 % Sodium Chloride 10 Ml Syringe) 10 ml IV Q8 [facility] Last Admin: 11/03/20 16:17 Dose: 10 ml Documented by: A/P Narrative A/P Narrative: Assessment: 50 year old male with hypertension, DM II admitted for MRI workup for progressively worsening back pain, right lower extremity weakness and recent onset of urine a stool incontinence. #Back pain, right lower extremity weakness and sensory deficits, stool and urine incontinence #Suspect neuropathy as cause of patient's presentation #Hypertension #Diabetes mellitus #Obesity Plan -Start Gabapentin TID. -Analgesics prn, scheduled toradol IV. Wean off opioids as able. -SSI-medium, hold Metformin. -Holding home Norvasc for normal blood pressure. -Diabetic diet -Code status: Full -Disposition: probably home with neurology referral for further workup likely to include electrodiagnostic studies. Time Spent With Patient Time: Total time spent is greater than 50% in coordination of care (as miryam connell) at patient's floor/unit and/or counseling patient: QUALITY Stroke Symptom Onset Unknown: No VTE Deep Vein Thrombosis/Pulmonary Embolism Present on Admission: No
[2020-11-03] MEDS: SENNOSIDES 1 TABLET PO SCH (20:35)
[2020-11-04] MEDS: HYDROmorphone 1 MG/ML SYRINGE IV PRN ×5 (03:16→21:47)
[2020-11-04] MEDS: HYDROcodone/APAP 5/325MG TABLET PO PRN ×4 (03:17→21:48)
[2020-11-04] MEDS: 0.9 % SODIUM CHLORIDE 10 ML SYRINGE IV SCH ×4 (03:17→22:19)
[2020-11-04] MEDS: GABAPENTIN 300 MG CAPSULE PO SCH ×3 (06:04→21:48)
[2020-11-04] MEDS: INSULIN LISPRO 1 UNIT/0.01 ML UNIT SQ SCH ×4 (07:37→21:53)
--- NOTE | 2020-11-04 12:10 | Internal Med Progress Note ---
SUBJECTIVE Subjective Patient information: Note initiated : 11/04/20 at 12:09 pm Service Date, if different from initiated Date: [] Patient: Aaron Calle 50 y/o M admitted on 11/02/20 for Back pain. Chief Complaint: [] Interval history: Mr. Calle is a 50 year old male with a history of hypertension, diabetes mellitus type 2, obesity presenting to the emergency department for progressively worsening back pain, right lower extremity weakness since August. Patient says that now his symptoms are associated with urinary and fecal incontinence which is why he presents to the emergency department now. In the emergency department, the patient had a MRI of his spine which did not show any evidence of cauda equina pathology, there were multi degenerative changes most significant at L3-4 there was a mild broad disc protrusion and facet arthro abigail resulting in mild central canal and bilateral recess and IV foraminal narrowing, at L4-5 there was a mild broad disc protrusion and facet arthropathy resulting in moderate left and mild right IV narrowing with mild impingement of the exiting L for nerve root. After reviewing the case with Dr. Kay negative the neurosurgeons available authorization specialist, a MRI of the thoracic spine was ordered however unable to be completed at night. The patient was admitted for further work-up that will include the MRI of the thoracic spine in the morning and pain management. 11/03 MRI thoracic spine did not show any cause for the patient's symptoms, discussed with the patient. The patient should have an EMG for further workup, likely would have to be done outpatient. Started Gabapentin, consulted PT and OT. Will need to wean off opioids. 11/04 Discussed the patient's presentation and MRI thoracic and lumbar spine results with Dr. Jordan, neurosurgery, at [facility] who did not feel any surgical intervention was indicated. Later discussed the case with neurology, Dr. Bailey, at [facility], recommended MRI cervical, thoracic, lumbar spine with contrast. Prior scans were done without contrast, orders placed. Physical exam Head: Atraumatic, normal inspection. Eyes: normal appearance, no scleral icterus. Neck: full ROM Respiratory: no respiratory distress. Cardiovascular: normal rate and rhythm, S1, S2. GI/Abdominal: soft, nontender, no guarding. Extremities: full range of motion, nontender. Neurological: right lower extremity weakness relative to right side, right sided sensory deficit at approximately the umbilical level, diminished bilateral patella deep tendon reflexes. Psychiatric: normal mood. Skin: warm, normal color Constitutional Vitals: Vital Signs Temp Pulse Resp BP Pulse Ox 97.9 F 58 L 18 125/82 95 11/04/20 07:48 11/04/20 07:48 11/04/20 07:48 11/04/20 07:48 11/04/20 07:48 Period Temp Pulse Resp BP Sys/Pierce Pulse Ox Last 24 Hr 97.3 F-98.3 F 55-66 12-20 93-135/55-87 94-97 Intake and Output 11/03/20 11/04/20 11/04/20 21:59 05:59 13:59 Intake Total 400 100 Output Total 2 1 Balance 398 100 -1 Weight 127.55 kg Intake & Output: Intake & Output 11/03/20 11/04/20 11/04/20 21:59 05:59 13:59 Intake Total 400 100 Output Total 2 1 Balance 398 100 -1 Weight 127.55 kg Intake: Oral 400 100 Output: # of times incontinent of urine 2 1 Other: Meal Dinner Percent of Meal Consumed 100% Feeding Ability Assist with Tray Set Up OBJ DATA Labs CBC & Chem 7: 11/02/20 14:58 Labs: Abnormal Lab Results 11/03/20 11/02/20 11/02/20 05:41 18:15 14:58 MCHC MPV POC Glucose 201 H Hemoglobin A1c 7.8 H Urine Glucose (UA) 150 A 11/02/20 14:58 MCHC 36.3 H MPV 10.6 H POC Glucose Hemoglobin A1c Urine Glucose (UA) Meds: Medications Acetaminophen (Acetaminophen 325 Mg Tablet) 650 mg PO Q6HP PRN; Protocol PRN Reason: Per Pain Protocol/Fever > 101 Hydrocodone Bitart/Acetaminophen (Hydrocodone/Apap 5/325mg Tablet) 1 tab PO Q4HP PRN; Protocol PRN Reason: Per Pain Protocol Last Admin: 11/04/20 11:44 Dose: 1 tab Documented by: Dextrose (Dextrose 50% 50 Ml Vial) 0 ml IV UD PRN PRN Reason: Hypoglycemia Diagnostic Test (Pha) (Accu-Chek 1 Each Strip) 1 each FS ACHS ERNA Last Admin: 11/04/20 11:43 Dose: 1 each Documented by: Gabapentin (Gabapentin 300 Mg Capsule) 300 mg PO Q8 [facility] Last Admin: 11/04/20 06:04 Dose: 300 mg Documented by: Glucose (Dextrose 31 Gm Oral.Susp) 15 gm PO PRN PRN PRN Reason: Hypoglycemia Hydromorphone HCl (Hydromorphone 1 Mg/Ml Syringe) 1 mg IV Q2HP PRN; Protocol PRN Reason: Per Pain Protocol Last Admin: 11/04/20 11:45 Dose: 1 mg Documented by: Insulin Human Lispro (Insulin Lispro 1 Unit/0.01 Ml Unit) 0 unit SQ [facility]; Protocol Last Admin: 11/04/20 11:43 Dose: 1 units Documented by: Ketorolac Tromethamine (Ketorolac 15 Mg/Ml Vial) 15 mg IV Q6HP [facility] Stop: 11/04/20 21:38 Naloxone HCl (Naloxone Hcl 0.4 Mg/Ml Vial) 0.2 mg IV Q5M PRN PRN Reason: Opiate Reversal Ondansetron HCl (Ondansetron 4 Mg/2 Ml Vial) 4 mg IV Q6HP PRN PRN Reason: Nausea And Vomiting Polyethylene Glycol (Polyethylene Glycol 3350 17 Gm Packet) 17 gm PO DAILYP PRN PRN Reason: Constipation Senna (Sennosides 1 Tablet) 2 tab PO HS [facility] Last Admin: 11/03/20 20:35 Dose: 2 tab Documented by: Sodium Chloride (0.9 % Sodium Chloride 10 Ml Syringe) 10 ml IV Q8 [facility] Last Admin: 11/04/20 06:07 Dose: 10 ml Documented by: A/P Narrative A/P Narrative: Assessment: 50 year old male with hypertension, DM II admitted forworkup for progressively worsening back pain, right lower extremity weakness and recent onset of urine a stool incontinence. #Back pain, right lower extremity weakness and sensory deficits, stool and urine incontinence #Suspect neuropathy as cause of patient's presentation #Hypertension #Diabetes mellitus #Obesity Plan -MRI cervical, thoracic, lumbar spine with contrast per recommendation from neurology at [facility]. -Continue Gabapentin 300 mg TID. -Start Duloxetine 60 mg daily. -Analgesics prn, scheduled toradol IV. -Wean opioids. -SSI-medium, hold Metformin. -Resume home Norvasc. -PT and OT -Diabetic diet -Code status: Full -Disposition: probably home with neurology referral for further workup likely to include electrodiagnostic studies. Time Spent With Patient Time: Total time spent is greater than 50% in coordination of care (as documented) at patient's floor/unit and/or counseling patient: QUALITY Stroke Symptom Onset Unknown: No VTE Deep Vein Thrombosis/Pulmonary Embolism Present on Admission: No
[2020-11-04] MEDS ORDERED: LORazepam 2 MG/ML VIAL IV ONE (14:19)
[2020-11-04] MEDS: DULoxetine 30 MG CAPSULE PO SCH (14:19)
--- NOTE | 2020-11-04 18:30 | Magnetic Resonance Report ---
CLINICAL INFORMATION: Large extremity weakness and incontinence. Evaluate for transverse myelitis COMPARISON: None. TECHNIQUE: Sagittal T2, sagittal T1 FLAIR, sagittal T1 FLAIR post Magnevist sagittal STIR and axial and FLAIR post Magnevist T2 images were acquired. FINDINGS: The cervical spine is normal in curvature and alignment. No marrow signal abnormality. The visualized brainstem, cerebellum and cervical cord are normal in contour and caliber with homogeneous signal. No focal cord lesion to suggest transverse myelitis. Soft tissues are normal. The C2-3, C3-4, C4-5 and C5-6 disc levels are normal. At C6-7, moderate broad disc spur complex results in severe bilateral lateral recess /IV foraminal narrowing and mild central canal stenosis.. There is impingement of the exiting C7 nerve roots. The C7-T1 disc level is normal. No abnormal enhancement IMPRESSION: C6-7: Moderate broad disc spur complex resulting in severe bilateral lateral recess/IV foraminal narrowing with exiting C7 nerve root impingement. Mild central canal stenosis No evidence of transverse myelitis-cervical cord is normal. Interpreted and Authenticated by: Nixon Jackson 11/04/20
--- NOTE | 2020-11-04 18:34 | Magnetic Resonance Report ---
CLINICAL INFORMATION: Back pain with right-sided radiculopathy new onset bladder and bowel incontinence. Evaluate for thoracic cord lesion COMPARISON: 11/02/2020 TECHNIQUE: Sagittal T1 FLAIR post Magnevist and, axial T1 FLAIR weighted images were acquired of the thoracic spine. FINDINGS: The thoracic spine is anatomically aligned and marrow signal is normal. Thoracic cord is normal in contour and caliber without focal signal abnormality. The discs are all well hydrated and show no evidence of extrusion or protrusion. The central canal, lateral recesses and IV foramen are normal width at each level. No soft tissue abnormalities. No abnormal enhancement. IMPRESSION: Normal exam. Interpreted and Authenticated by: Nixon Jackson 11/04/20
--- NOTE | 2020-11-04 18:39 | Magnetic Resonance Report ---
CLINICAL INFORMATION: Low back pain and radiculopathy and incontinence COMPARISON: Lumbar MRI 11/02/2020 TECHNIQUE: Sagittal T1 FLAIR post Magnevist and axial T1 post Magnevist images were acquired. FINDINGS: The lumbar spine is normal in curvature and alignment. There is diminished T1 marrow signal which suggests a preponderance of red hematopoetic elements. There are no focal osseous lesions. The conus medullaris ends at T12 and is homogeneous signal. No abnormal enhancement of the cauda equina roots. No intrathecal pathology. Soft tissues are normal. The T11-T12, T12-L1, L1-2 and L2-3 disc levels are normal. At L3-4, mild broad disc protrusion and facet arthropathy result in mild central canal, bilateral lateral recess and IV foraminal narrowing. This may touch the exiting L3 nerve roots. No change At L4-5, mild broad disc protrusion and facet arthropathy result in mild central canal, moderate left and mild right IV foraminal narrowing. There is mild impingement of the exiting L4 nerve roots-no change. At L5-S1, there is mild annular bulge and moderate facet arthropathy. IMPRESSION: 1. No abnormal enhancement of the conus medullaris and cauda equina roots. 2. Multilevel degeneration-as described. Interpreted and Authenticated by: Nixon Jackson 11/04/20
[2020-11-04] MEDS: traMADol 50 MG TABLET PO PRN (19:00)
[2020-11-04] MEDS: SENNOSIDES 1 TABLET PO SCH (21:48)
[2020-11-05] MEDS: HYDROmorphone 1 MG/ML SYRINGE IV PRN ×2 (01:57→05:52)
[2020-11-05] MEDS: HYDROcodone/APAP 5/325MG TABLET PO PRN ×3 (01:57→09:59)
[2020-11-05] MEDS: GABAPENTIN 300 MG CAPSULE PO SCH ×2 (05:53→13:42)
[2020-11-05] MEDS: 0.9 % SODIUM CHLORIDE 10 ML SYRINGE IV SCH (05:54)
[2020-11-05] MEDS: INSULIN LISPRO 1 UNIT/0.01 ML UNIT SQ SCH ×2 (07:37→11:26)
[2020-11-05] MEDS: DULoxetine 30 MG CAPSULE PO SCH (08:06)
--- NOTE | 2020-11-05 08:46 | Internal Med Progress Note ---
SUBJECTIVE Subjective Patient information: Note initiated : 11/05/20 at 8:36 am Service Date, if different from initiated Date: [] Patient: Aaron Calle 50 y/o M admitted on 11/02/20 for Back pain. Chief Complaint: [] Interval history: Mr. Calle is a 50 year old male with a history of hypertension, diabetes mellitus type 2, obesity presenting to the emergency department for progressively worsening back pain, right lower extremity weakness since August. Patient says that now his symptoms are associated with urinary and fecal incontinence which is why he presents to the emergency department now. In the emergency department, the patient had a MRI of his spine which did not show any evidence of cauda equina pathology, there were multi degenerative changes most significant at L3-4 there was a mild broad disc protrusion and facet arthropathy resulting in mild central canal and bilateral recess and IV foraminal narrowing, at L4-5 there was a mild broad disc protrusion and facet arthropathy resulting in moderate left and mild right IV narrowing with mild impingement of the exiting L for nerve root. After reviewing the case with Dr. Kay negative the neurosurgeons available content development specialist, a MRI of the thoracic spine was ordered however unable to be completed at night. The patient was admitted for further work-up that will include the MRI of the thoracic spine in the morning and pain management. 11/03 MRI thoracic spine did not show any cause for the patient's symptoms, discussed with the patient. The patient should have an EMG for further workup, likely would have to be done outpatient. Started Gabapentin, consulted PT and OT. Will need to wean off opioids. 11/04 Discussed the patient's presentation and MRI thoracic and lumbar spine results with Dr. Jordan, neurosurgery, at [facility] who did not feel any surgical intervention was indicated. Later discussed the case with neurology, Dr. Bailey, at [facility], recommended MRI cervical, thoracic, lumbar spine with contrast. Prior scans were done without contrast, orders placed. 11/05 No evidence of transverse myelitis or other cause of the pains symptoms on MRI cervical, thoracic, lumbar spine with contrast. Neurology at [facility] nter reviewing images, waiting for further workup recommendations including possible lumbar puncture for CSF studies. Review of systems: persistent lower back and right lower extremity pain, no shor tness of breath, no chest pain, afebrile Physical exam Head: Atraumatic, normal inspection. Eyes: normal appearance, no scleral icterus. Neck: full ROM Respiratory: no respiratory distress. Cardiovascular: normal rate and rhythm, S1, S2. GI/Abdominal: soft, nontender, no guarding. Extremities: full range of motion, nontender. Neurological: right lower extremity weakness relative to right side, right sided sensory deficit at approximately the umbilical level, diminished bilateral patella deep tendon reflexes. Psychiatric: normal mood. Skin: warm, normal color Constitutional Vitals: Vital Signs Temp Pulse Resp BP Pulse Ox 97.2 F 69 16 124/80 92 11/05/20 06:44 11/05/20 06:44 11/05/20 06:44 11/05/20 06:44 11/05/20 06:44 Period Temp Pulse Resp BP Sys/Pierce Pulse Ox Last 24 Hr 97.2 F-98.4 F 69-92 16-18 118-144/66-98 92-96 Intake and Output 11/04/20 11/05/20 11/05/20 21:59 05:59 13:59 Intake Total 1040 600 Output Total 2 Balance 1040 598 Weight 128.026 kg Intake & Output: Intake & Output 11/04/20 11/05/20 11/05/20 21:59 05:59 13:59 Intake Total 1040 600 Output Total 2 Balance 1040 598 Weight 128.026 kg Intake: Oral 1040 600 Output: # of times incontinent of urine 2 Other: Meal Dinner Percent of Meal Consumed 100% # Voids 3 4 OBJ DATA Labs CBC & Chem 7: 11/02/20 14:58 Labs: Abnormal Lab Results 11/03/20 11/02/20 11/02/20 05:41 18:15 14:58 MCHC MPV POC Glucose 201 H Hemoglobin A1c 7.8 H Urine Glucose (UA) 150 A 11/02/20 14:58 MCHC 36.3 H MPV 10.6 H POC Glucose Hemoglobin A1c Urine Glucose (UA) Meds: Medications Acetaminophen (Acetaminophen 325 Mg Tablet) 650 mg PO Q6HP PRN; Protocol PRN Reason: Per Pain Protocol/Fever > 101 Hydrocodone Bitart/Acetaminophen (Hydrocodone/Apap 5/325mg Tablet) 1 tab PO Q4HP PRN; Protocol PRN Reason: Per Pain Protocol Last Admin: 11/05/20 05:53 Dose: 1 tab Documented by: Amlodipine Besylate (Amlodipine 10 Mg Tablet) 10 mg PO QDAY [facility] Last Admin: 11/05/20 08:06 Dose: 10 mg Documented by: Dextrose (Dextrose 50% 50 Ml Vial) 0 ml IV UD PRN PRN Reason: Hypoglycemia Diagnostic Test (Pha) (Accu-Chek 1 Each Strip) 1 each FS [facility] Last Admin: 11/05/20 07:36 Dose: 1 each Documented by: Duloxetine HCl (Duloxetine 30 Mg Capsule) 60 mg PO DAILY [facility] Last Admin: 11/05/20 08:06 Dose: 60 mg Documented by: Gabapentin (Gabapentin 300 Mg Capsule) 300 mg PO Q8 [facility] Last Admin: 11/05/20 05:53 Dose: 300 mg Documented by: Glucose (Dextrose 31 Gm Oral.Susp) 15 gm PO PRN PRN PRN Reason: Hypoglycemia Hydromorphone HCl (Hydromorphone 1 Mg/Ml Syringe) 1 mg IV Q4HP PRN; Protocol PRN Reason: Per Pain Protocol Last Admin: 11/05/20 05:52 Dose: 1 mg Documented by: Insulin Human Lispro (Insulin Lispro 1 Unit/0.01 Ml Unit) 0 unit SQ [facility]; Protocol Last Admin: 11/05/20 07:37 Dose: Not Given Documented by: Naloxone HCl (Naloxone Hcl 0.4 Mg/Ml Vial) 0.2 mg IV Q5M PRN PRN Reason: Opiate Reversal Ondansetron HCl (Ondansetron 4 Mg/2 Ml Vial) 4 mg IV Q6HP PRN PRN Reason: Nausea And Vomiting Polyethylene Glycol (Polyethylene Glycol 3350 17 Gm Packet) 17 gm PO DAILYP PRN PRN Reason: Constipation Last Admin: 11/04/20 18:53 Dose: 17 gm Documented by: Senna (Sennosides 1 Tablet) 2 tab PO HS [facility] Last Admin: 11/04/20 21:48 Dose: 2 tab Documented by: Sodium Chloride (0.9 % Sodium Chloride 10 Ml Syringe) 10 ml IV Q8 [facility] Last Admin: 11/05/20 05:54 Dose: 10 ml Documented by: Tramadol HCl (Tramadol 50 Mg Tablet) 100 mg PO Q8HP PRN; Protocol PRN Reason: Pain Last Admin: 11/04/20 19:00 Dose: 100 mg Documented by: A/P Narrative A/P Narrative: Assessment: 50 year old male with hypertension, DM II admitted for workup for progressively worsening back pain, right lower extremity weakness and recent onset of urine a stool incontinence. MRI of the cervical, thoracic, lumbar spine has not yielded a diagnosis to explain his symptoms. No evidence of infection, normal CRP. Discussed with neurosurgery at both [facility] (Dr. Jordan) and [facility] (Dr. Zuluaga) and both said there was no surgical indication. Coordinating with neurology (Dr. Patel) at [facility] for the workup. #Back pain, right lower extremity weakness and sensory deficits, stool and urine incontinence #Suspect a neuropathy as cause of patient's presentation #Hypertension #Diabetes mellitus -hgb A1C 7.8 #Obesity Plan -Coordinating with neurology at [place] for further workup-at this point recommended against a lumbar puncture, instead working with PT and OT and outpat ient electrodiagnostic studies. -Continue Gabapentin 300 mg TID. -Continue Duloxetine 60 mg daily. -Analgesics prn, wean opioids as able. -SSI-medium, hold Metformin. -Home Norvasc. -PT and OT -Diabetic diet -Code status: Full -Disposition: probably home with neurology referral for further workup likely to include electrodiagnostic studies. Time Spent With Patient Time: Total time spent is greater than 50% in coordination of care (as documented) at patient's floor/unit and/or counseling patient: QUALITY Stroke Symptom Onset Unknown: No VTE Deep Vein Thrombosis/Pulmonary Embolism Present on Admission: No
[2020-11-05] MEDS ORDERED: KETOROLAC 15 MG/ML VIAL IV PRN (08:59)
[2020-11-05] MEDS ORDERED: amLODIPine 10 MG TABLET PO SCH (09:00)
[2020-11-05] MEDS: traMADol 50 MG TABLET PO PRN (09:56)
--- NOTE | 2020-11-05 13:44 | Internal Med Progress Note ---
SUBJECTIVE Subjective Patient information: Note initiated : 11/05/20 at 1:41 pm Service Date, if different from initiated Date: [] Patient: Aaron Calle 50 y/o M admitted on 11/02/20 for Back pain. Chief Complaint: [] Interval history: Mr. Calle is a 50 year old male with a history of hypertension, diabetes mellitus type 2, obesity presenting to the emergency department for progressively worsening back pain, right lower extremity weakness since August. Patient says that now his symptoms are associated with urinary and fecal incontinence which is why he presents to the emergency department now. In the emergency department, the patient had a MRI of his spine which did not show any evidence of cauda equina pathology, there were multi degenerative changes most significant at L3-4 there was a mild broad disc protrusion and facet arthropathy resulting in mild central canal and bilateral recess and IV foraminal narrowing, at L4-5 there was a mild broad disc protrusion and facet arthropathy resulting in moderate left and mild right IV narrowing with mild impingement of the exiting L for nerve root. After reviewing the case with Dr. Kay negative the neurosurgeons available tongsman, a MRI of the thoracic spine was ordered however unable to be completed at night. The patient was admitted for further work-up that will include the MRI of the thoracic spine in the morning and pain management. 11/03 MRI thoracic spine did not show any cause for the patient's symptoms, discussed with the patient. The patient should have an EMG for further workup, likely would have to be done outpatient. Started Gabapentin, consulted PT and OT. Will need to wean off opioids. 11/04 Discussed the patient's presentation and MRI thoracic and lumbar spine results with Dr. Jordan, neurosurgery, at [facility] who did not feel any surgical intervention was indicated. Later discussed the case with neurology, Dr. Bailey, at [facility], recommended MRI cervical, thoracic, lumbar spine with contrast. Prior scans were done without contrast, orders placed. 11/05 No evidence of transverse myelitis or other cause of the pains symptoms on MRI cervical, thoracic, lumbar spine with contrast. Neurology at [facility] nter reviewing images, waiting for further workup recommendations including possible lumbar puncture for CSF studies. 11/06 Constitutional Vitals: Vital Signs Temp Pulse Resp BP Pulse Ox 97.5 F 67 18 112/71 94 11/05/20 11:20 11/05/20 11:20 11/05/20 11:20 11/05/20 11:20 11/05/20 11:20 Period Temp Pulse Resp BP Sys/Pierce Pulse Ox Last 24 Hr 97.2 F-98.4 F 67-92 16-18 112-133/66-98 92-96 Intake and Output 11/04/20 11/05/20 11/05/20 21:59 05:59 13:59 Intake Total 1040 600 Output Total 2 Balance 1040 598 Weight 128.026 kg Intake & Output: Intake & Output 11/04/20 11/05/20 11/05/20 21:59 05:59 13:59 Intake Total 1040 600 Output Total 2 Balance 1040 598 Weight 128.026 kg Intake: Oral 1040 600 Output: # of times incontinent of urine 2 Other: Meal Dinner Breakfast Percent of Meal Consumed 100% 100% Feeding Ability Independent # Voids 3 4 Exam: General: Alert, Awake, No acute Distress Eyes/N/T: EOMI, Head/Neck: neck supple, CV: RRR, No murmurs, Pulm: Clear b/l, no wheezing/rhonchi/rales Abd: soft, nontender, +BS x4 Ext: no clubbing/cyanosis/edema Neuro: Alert, right lower extremity weakness relative to right side, right sided sensory deficit at approximately the umbilical level, diminished bilateral p atella deep tendon reflexes. Skin: warm/dry OBJ DATA Labs CBC & Chem 7: 11/02/20 14:58 Labs: Abnormal Lab Results 11/03/20 11/02/20 11/02/20 05:41 18:15 14:58 MCHC MPV POC Glucose 201 H Hemoglobin A1c 7.8 H Urine Glucose (UA) 150 A 11/02/20 14:58 MCHC 36.3 H MPV 10.6 H POC Glucose Hemoglobin A1c Urine Glucose (UA) Meds: Medications Acetaminophen (Acetaminophen 325 Mg Tablet) 650 mg PO Q6HP PRN; Protocol PRN Reason: Per Pain Protocol/Fever > 101 Hydrocodone Bitart/Acetaminophen (Hydrocodone/Apap 5/325mg Tablet) 1 tab PO Q4HP PRN; Protocol PRN Reason: Per Pain Protocol Last Admin: 11/05/20 09:59 Dose: 1 tab Documented by: Amlodipine Besylate (Amlodipine 10 Mg Tablet) 10 mg PO QDAY [facility] Last Admin: 11/05/20 08:06 Dose: 10 mg Documented by: Dextrose (Dextrose 50% 50 Ml Vial) 0 ml IV UD PRN PRN Reason: Hypoglycemia Diagnostic Test (Pha) (Accu-Chek 1 Each Strip) 1 each FS [facility] Last Admin: 11/05/20 11:26 Dose: 1 each Documented by: Duloxetine HCl (Duloxetine 30 Mg Capsule) 60 mg PO DAILY [facility] Last Admin: 11/05/20 08:06 Dose: 60 mg Documented by: Gabapentin (Gabapentin 300 Mg Capsule) 300 mg PO Q8 [facility] Last Admin: 11/05/20 05:53 Dose: 300 mg Documented by: Glucose (Dextrose 31 Gm Oral.Susp) 15 gm PO PRN PRN PRN Reason: Hypoglycemia Insulin Human Lispro (Insulin Lispro 1 Unit/0.01 Ml Unit) 0 unit SQ [facility]; Protocol Last Admin: 11/05/20 11:26 Dose: Not Given Documented by: Ketorolac Tromethamine (Ketorolac 15 Mg/Ml Vial) 15 mg IV Q6HP PRN PRN Reason: Per Pain Protocol Stop: 11/07/20 08:59 Last Admin: 11/05/20 09:19 Dose: 15 mg Documented by: Naloxone HCl (Naloxone Hcl 0.4 Mg/Ml Vial) 0.2 mg IV Q5M PRN PRN Reason: Opiate Reversal Ondansetron HCl (Ondansetron 4 Mg/2 Ml Vial) 4 mg IV Q6HP PRN PRN Reason: Nausea And Vomiting Polyethylene Glycol (Polyethylene Glycol 3350 17 Gm Packet) 17 gm PO DAILYP PRN PRN Reason: Constipation Last Admin: 11/04/20 18:53 Dose: 17 gm Documented by: Senna (Sennosides 1 Tablet) 2 tab PO HS [facility] Last Admin: 11/04/20 21:48 Dose: 2 tab Documented by: Sodium Chloride (0.9 % Sodium Chloride 10 Ml Syringe) 10 ml IV Q8 [facility] Last Admin: 11/05/20 05:54 Dose: 10 ml Documented by: Tramadol HCl (Tramadol 50 Mg Tablet) 100 mg PO Q8HP PRN; Protocol PRN Reason: Pain Last Admin: 11/05/20 09:56 Dose: 100 mg Documented by: A/P Narrative A/P Narrative: A: #Back pain, right lower extremity weakness & sensory deficits, stool and urine incontinence: -MRI imaging unremarkable #Suspect a neuropathy as cause of patient's presentation #Hypertension #Diabetes mellitus: A1C 7.8 #Obesity Plan -Coordinating with neurology at [place] for further workup-at this point recommended against a lumbar puncture, instead working with PT and OT and outpatient electrodiagnostic studies -Continue Gabapentin 300 mg TID. -Continue Duloxetine 60 mg daily. -Analgesics prn, wean opioids as able. -SSI, hold Metformin. 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
--- NOTE | 2020-11-05 13:49 | Discharge Summary ---
Discharge Provider Provider Patient information: Note initiated : 11/05/20 at 1:46 pm Service Date, if different from initiated Date: [] Patient: Aaron Calle 50 y/o M admitted on 11/02/20 for Back pain. Chief Complaint: [] Date of admission: 11/02/20 22:13 Discharge date: 11/05/20 Primary care physician: Tom Garza DO Consults: 11/02/20 Consult to Physician [CONS] Stat Comment: Consulting Provider: Mina Mahan Reason For Exam: Physician to Consult Discharge Meds Discharge Medications Home Medications hydrochlorothiazide 12.5 mg PO DAILY 08/23/18 [History Confirmed 11/02/20 Last Taken 11/02/20 09:00] blood sugar diagnostic #100 strip 11/11/18 [Rx Confirmed 11/02/20 Last Taken Unknown] blood-glucose meter #1 each 11/11/18 [Rx Confirmed 11/02/20 Last Taken Unknown] insulin syringes (disposable) #100 disp.syrin 11/11/18 [Rx Confirmed 11/02/20 Last Taken Unknown] lancets #100 each 11/11/18 [Rx Confirmed 11/02/20 Last Taken Unknown] amlodipine 10 mg tablet 10 mg PO QDAY 09/10/20 [History Confirmed 11/02/20 Last Taken 11/02/20 09:00] bupropion HCl 150 mg 24 hr tablet, extended release 150 mg PO QAM 09/10/20 [History Confirmed 11/02/20 Last Taken 11/01/20 21:00] metformin 250 mg PO BIDCC 11/02/20 [History Confirmed 11/02/20 Last Taken 11/02/20 09:00] oxycodone-acetaminophen 1 tab PO Q6HP PRN 11/02/20 [History Confirmed 11/02/20 Last Taken 11/02/20 04:00] duloxetine 60 mg PO DAILY #30 cap 11/05/20 [Rx Last Taken Unknown] gabapentin 300 mg PO Q8 #90 cap 11/05/20 [Rx Last Taken Unknown] COURSE Hospital Course Hospital course: Interval history: Mr. Calle is a 50 year old male with a history of hypertension, diabetes mellitus type 2, obesity presenting to the emergency department for progressively worsening back pain, right lower extremity weakness since August. Patient says that now his symptoms are associated with urinary and fecal incontinence which is why he presents to the emergency department now. In the emergency department, the patient had a MRI of his spine which did not show any evidence of cauda equina pathology, there were multi degenerative changes most significant at L3-4 there was a mild broad disc protrusion and facet arthropathy resulting in mild central canal and bilateral recess and IV foraminal narrowing, at L4-5 there was a mild broad disc protrusion and facet arthropathy resulting in moderate left and mild right IV narrowing with mild impingement of the exiting L for nerve root. After reviewing the case with Dr. Kay negative the neurosurgeons available director distribution, a MRI of the thoracic spine was ordered however unable to be completed at night. The patient was admitted for further work-up that will include the MRI of the thoracic spine in the morning and pain management. 11/03 MRI thoracic spine did not show any cause for the patient's symptoms, discussed with the patient. The patient should have an EMG for further workup, likely would have to be done outpatient. Started Gabapentin, consulted PT and OT. Will need to wean off opioids. 11/04 Discussed the patient's presentation and MRI thoracic and lumbar spine results with Dr. Jordan, neurosurgery, at [facility] who did not feel any surgical intervention was indicated. Later discussed the case with neurology, Dr. Bailey, at [facility], recommended MRI cervical, thoracic, lumbar spine with contrast. Prior scans were done without contrast, orders placed. 11/05 No evidence of transverse myelitis or other cause of the pains symptoms on MRI cervical, thoracic, lumbar spine with contrast. Neurology at [facility] reviewing images, waiting for further workup recommendations including possible lumbar puncture for CSF studies. A/P Narrative: Assessment: 50 year old male with hypertension, DM II admitted for workup for progressively worsening back pain, right lower extremity weakness and recent onset of urine a stool incontinence. MRI of the cervical, thoracic, lumbar spine has not yielded a diagnosis to explain his symptoms. No evidence of infection, normal CRP. Discussed with neurosurgery at both [facility] (Dr. Jordan) and [facility] (Dr. Zuluaga) and both said there was no surgical indication. Coordinating with neurology (Dr. Patel) at [facility] for the workup. #Back pain, right lower extremity weakness and sensory deficits, stool and urine incontinence #Suspect a neuropathy as cause of patient's presentation #Hypertension #Diabetes mellitus -hgb A1C 7.8 #Obesity Plan -Coordinating with neurology at [place] for further workup-at this point recommended against a lumbar puncture, instead working with PT and OT and outpatient electrodiagnostic studies. -Continue Gabapentin 300 mg TID. -Continue Duloxetine 60 mg daily. -Analgesics prn, wean opioids as able. Discharge diagnosis: Back pain right lower show no weakness Secondary discharge diagnosis: or sensory deficits. Time Spent with Patient Time attestation: Total time spent providing and/or coordinating discharge services: Time spent: Greater than 30 minutes EXAM Constitutional Vitals: Temp Pulse Resp BP Pulse Ox 97.5 F 67 18 112/71 94 11/05/20 11:20 11/05/20 11:20 11/05/20 11:20 11/05/20 11:20 11/05/20 11:20 Discharge Plan Patient/Caregiver Discharge Instructions Activity: increase activity as tolerated Diet: Consistent Carbohydrate Activity Restrictions/Additional Instructions: Follow-up with neurology and pain clinic. Follow-up with physical therapy outpatient. Prescriptions: New gabapentin 300 mg Capsule 300 mg PO Q8 Qty: 90 RF: 0 duloxetine 30 mg Capsule,Delayed Release(Dr/Ec) 60 mg PO DAILY Qty: 30 RF: 0 Continued amlodipine 10 mg tablet 10 mg PO QDAY RF: 0 bupropion HCl 150 mg tablet extended release 24 hr 150 mg PO QAM RF: 0 hydrochlorothiazide 12.5 MG capsule 12.5 mg PO DAILY RF: 0 (DME) insulin syringes (disposable) 1 EACH syringe 1 each MC QHS Qty: 100 RF: 0 (DME) blood-glucose meter 1 EACH misc 1 each MC DAILY Qty: 1 RF: 0 (DME) blood sugar diagnostic 1 EACH strip 1 each MC DAILY Qty: 100 RF: 0 (DME) lancets 1 EACH misc 1 each MC DAILY Qty: 100 RF: 0 metformin 850 MG tablet 250 mg PO BIDCC RF: 0 oxycodone-acetaminophen 10-325 mg tablet 1 tab PO Q6HP PRN (Reason: Pain) RF: 0 Follow Up Plan Follow up with: Tom Garza DO [Primary Care Provider] - Patient Disposition: Home, Self-Care Prognosis: Fair Overall status at discharge: patient is progressing back to baseline Discharge Orders: Discharge Order (Routine); Ordered 11/05/20 Ordered By: Anand Espinosa [facility] VTE Deep Vein Thrombosis/Pulmonary Embolism Present on Admission: No
== END 2020-11-05 15:00 | disposition home or self-care (01) | DRG 552 ==
LOC: ED 12:14 → MEDSUR 22:13
PROVIDERS: ADMIT Internal Medicine; ATTEND Internal Medicine